=== PATIENT | female | born 1940 | race Caucasian/White ===

== ENCOUNTER 2017-03-21 00:54 | Inpatient (IN) | payer OTHER ==
[2017-03-21] MEDS ORDERED: ONDANSETRON 4 MG/2 ML VIAL ONE (01:55)
[2017-03-21] MEDS ORDERED: IOPAMIDOL (ISOVUE-300) 100 ML BTL ONE (01:56)
[2017-03-21] MEDS ORDERED: MAG HYDROX/AL HYDROX/SIMETH 30 ML UDCUP ONE (03:34)
[2017-03-21] MEDS ORDERED: LIDOCAINE 2% VISCOUS 15 ML UDCUP ONE (03:34)
--- NOTE | 2017-03-21 05:14 | EDPHY ---
H & P Time Seen by Provider: 03/21/17 05:06 HPI/ROS: Salma Brock [id number] HPI CHIEF COMPLAINT: Abdominal pain HISTORY OF PRESENT ILLNESS This patient very pleasant female, she presents emergency room with abdominal pain mid abdomen associated nausea since 10:00 a.m. this morning. No vomiting. States his constant gnawing pain mid abdomen. No chest pain or shortness of breath. No fever. She thinks she may have a bowel obstruction. Past Medical History: Hypertension Past Surgical History: Gastric bypass, hysterectomy, cholecystectomy Social History: Denies daily use drugs alcohol tobacco products Family History: Noncontributory ROS REVIEW OF SYSTEMS: A comprehensive 10 point review of systems is otherwise negative aside from elements mentioned in the history of present illness. Exam Constitutional triage nursing summary reviewed, vital signs reviewed, awake/ alert. Eyes normal conjunctivae and sclera, EOMI, PERRLA. HENT normal inspection, atraumatic, moist mucus membranes, no epistaxis, neck supple/ no meningismus, no raccoon eyes. Respiratory clear to auscultation bilaterally, normal breath sounds, no respiratory distress, no wheezing. Cardiovascular rate normal, regular rhythm, no murmur, no edema, distal pulses normal. Gastrointestinal soft tender palpation mid abdomen, no rebound, no guarding, normal bowel sounds, no distension, no pulsatile mass. Genitourinary no CVA tenderness. Musculoskeletal no midline vertebral tenderness, full range of motion, no calf swelling, no tenderness of extremities, no meningismus, good pulses, neurovascularly intact. Skin pink, warm, & dry, no rash, skin atraumatic. Neurologic awake, alert and oriented x 3, AAOx3, moves all 4 extremities equally, motor intact, sensory intact, CN II-XII intact, normal cerebellar, normal vision, normal speech. Psychiatric normal mood/affect. Heme/Lymph/Immune no lymphadenopathy. Differential Diagnosis: Includes but is not limited to in a particular order pancreatitis, bowel obstruction, ileus, cardiac disease Medical Decision Making: Plan for this patient IV establishment with IV fluid bolus Zofran for nausea control Dilaudid for pain control, IV fluids, CT abdomen pelvis with IV contrast, EKG and troponin. Re-evaluate. Re-evaluation: EKG interpretation by me on record in [facility] system. Impression time of EKG 1:41 a.m., this is AFib with multiple PVCs present. Otherwise I do not appreciate any acute ischemia. When I compare this to her old EKG she had a previous EKG dated 01/25/2015 sinus bradycardia 42. That was in sinus rhythm no AFib. I-STAT chemistry on this patient is a glucose of 100, BUN 25, creatinine 1.2, hematocrit 44, hemoglobin 15 sodium 141, potassium 3.4, chloride 103 CT scan of the abdomen pelvis with IV contrast The results of the study are negative for acute disease process specifically no evidence of bowel obstruction free fluid or free air no inflammatory process appreciated.. The study was read by Paola Soliz I viewed the images myself on the PACS system. Lactic acid 1.1. CBC shows a white count 7.6, hemoglobin 13.1, hematocrit 41.0, platelets 234 EKG interpretation by me on record in [facility] system. Impression this is a repeat EKG time of EKG 2:43 a.m., this is AFib, rate of 60s, multiple PVCs present. Troponin is negative less than 0.02. I Did re-evaluate the patient at this time 3:09 a.m. she is feeling better. She denies any nausea or chest pain. Noted to be in AFib. Will discuss atrial fibrillation with she reports to me that she does take sotalol. She is not on any anticoagulation. She reports she was on Xarelto however and made her muscles very weak. UA resulted. Unremarkable for infection. Very minimal whites 5, 1+ leukocyte Estrace negative nitrite. Most likely not the cause of her upper abdominal pain. 0334AM: I did re-evaluate the patient she is resting comfortably no acute distress. Abdomen is mildly tender epigastric and lower abdomen no guarding or peritoneal signs. Lipase noted be at 300. Urinalysis does not indicate anything significant. Will try GI cocktail to see if this improves her pain. 419AM: I did re-evaluate the patient. 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 There is no guarding or peritoneal signs. She still complaining of abdominal pain. GI cocktail did not improve her discomfort. I reviewed her blood work, EKG, CT scan lactic acid. She would like to stay in the hospital today for pain control IV fluids and nausea control. I will contact the hospitalist service Dr. Meadows for admission. 0423AM: Re-evaluation at this time. Patient continued to have abdominal pain. I spoke with the hospitalist service Dr. Meadows agrees to admit this patient for observation for abdominal pain. I do not have a great explanation for this patient's diffuse rather tender abdomen epigastric region. I do not feel like she has a surgical emergency or acute peritoneal signs. Source: Patient - Medical/Surgical History Hx Asthma: No Hx Chronic Respiratory Disease: No Hx Diabetes: No Hx Cardiac Disease: Yes Hx Renal Disease: No Hx Cirrhosis: No Hx Alcoholism: No Hx HIV/AIDS: No Hx Splenectomy or Spleen Trauma: No Other PMH: heart cath x3, knee replacements, gastric bypass. - Social History Smoking Status: Never smoked Allergies/Adverse Reactions: Sulfa (Sulfonamide Antibiotics) Allergy (Verified 07/10/13 14:40) Home Medications: Medication Instructions Recorded Biotin Sl 4,000 mcg SL DAILY 06/18/13 Cyanocobalamin/Cobamamide [B-12 2 each SL DAILY 06/18/13 5,000 Mcg Sublingual Tab] Irbesartan [Avapro 300 mg] 300 mg PO HS 06/18/13 Potassium Cl [Klor-Con 20 meq (RX)] 20 meq PO BID 06/18/13 Sotalol HCl [Sotalol] 80 mg PO BID 06/18/13 amLODIPine BESYLATE 03/13/16 Medical Decision Making - Data Points Laboratory Results: 03/21/17 01:45 POC Hgb 15.0 gm/dL gm/dL (12.6-16.3) POC Hct 44 % % (38-47) POC Sodium 141 mEq/L mEq/L (134-144) POC Potassium 3.4 mEq/L mEq/L (3.3-5.0) POC Chloride 103 mEq/L mEq/L (97-110) POC BUN 25 mg/dL H mg/dL (7-23) POC Creatinine 1.2 mg/dL H mg/dL (0.6-1.0) POC Glucose 100 mg/dL mg/dL (70-100) Point of Care Test Results: 03/21/17 01:45 POC Sodium 141 POC Potassium 3.4 POC Chloride 103 POC BUN 25 H POC Creatinine 1.2 H POC Glucose 100 Departure - Departure Disposition: [facility] Inpatient Acute Clinical Impression: Abdominal pain Qualifiers: Abdominal location: generalized Qualified Code(s): R10.84 - Generalized abdominal pain Condition: Fair
[2017-03-21] MEDS ORDERED: ONDANSETRON DISINTEGRATING 4 MG TAB PO PRN (05:19)
[2017-03-21] MEDS ORDERED: ONDANSETRON 4 MG/2 ML VIAL IVP PRN (05:19)
[2017-03-21] MEDS ORDERED: ACETAMINOPHEN 325 MG TAB PO PRN (05:19)
[2017-03-21] MEDS ORDERED: NS 1,000 ML IV SCH (05:30)
[2017-03-21] MEDS ORDERED: HYDROmorphONE/DILAUDID 1 MG/ML SYR IVP PRN (05:43)
[2017-03-21 05:44] LABS: APTT 35.7 SEC (23.0-38.0); INR 1.18 (0.83-1.16)
[2017-03-21 05:57] LABS: MAGNESIUM 1.5 mg/dL (1.6-2.3)
[2017-03-21 05:59] LABS: % IMMATURE GRANULYOCYTES 0.3 % (0.0-1.1); ABSOLUTE IMMATURE GRANULOCYTES 0.02 10^3/uL (0.00-0.10); ADD DIFF? NO; ADD MORPH? NO; ADD SCAN? NO; ATYPICAL LYMPHOCYTE FLAG 0 (0-99); FRAGMENT RBC FLAG 0 (0-99); HEMOGLOBIN 13.1 g/dL (12.6-16.3); LEFT SHIFT FLG 0 (0-99); LIPEMIA HEMOLYSIS FLAG 80 (0-99); MEAN CELL HEMOGLOBIN 25.6 pg (27.9-34.1); MEAN CELL VOLUME 80.1 fL (81.5-99.8); MEAN PLATELET VOLUME 10.1 fL (8.7-11.7); PLATELET CLUMPS FLAG 20 (0-99); PLATELET COUNT 234 10^3/uL (150-400); RED BLOOD CELL COUNT 5.12 10^6/uL (4.18-5.33); RED CELL DISTRIBUTION WIDTH 16.7 % (11.5-15.2)
[2017-03-21 06:09] LABS: ALANINE AMINOTRANSFERASE 30 IU/L (9-52); ALBUMIN 4.2 g/dL (3.5-5.0); ALKALINE PHOSPHATASE 78 IU/L (38-126); ASPARTATE AMINOTRANSFERASE 32 IU/L (14-46); BILIRUBIN,TOTAL 0.9 mg/dL (0.1-1.4); CALCIUM 10.3 mg/dL (8.5-10.4); CARBON DIOXIDE 24 mEq/l (22-31); CREATININE 1.1 mg/dL (0.6-1.0); GLOMERULAR FILTRATION RATE 49; GLUCOSE 99 mg/dL (70-100); TOTAL PROTEIN 7.2 g/dL (6.3-8.2); TROPONIN I < 0.012 ng/mL (0.000-0.034)
[2017-03-21 06:10] LABS: CHLORIDE 102 mEq/L (97-110); POTASSIUM 4.1 mEq/L (3.5-5.2); SODIUM 138 mEq/L (134-144)
[2017-03-21 06:12] LABS: ANION GAP 12 mEq/L (8-16)
[2017-03-21] MEDS: HEPARIN 5,000 UNIT/0.5 ML SYR SC SCH ×3 (06:12→20:49)
[2017-03-21 06:26] LABS: COLOR YELLOW; LEUKOCYTE ESTERASE,URINE 1+ (NEGATIVE); NITRITE,URINE NEGATIVE (NEGATIVE)
[2017-03-21 06:28] LABS: MUCUS TRACE /lpf (NONE-1+); RENAL EPITHELIAL CELLS OCCASIONAL /hpf (NONE SEEN)
--- NOTE | 2017-03-21 06:46 | CPEKG ---
Heart Rate: 65 RR Interval: 923 QRSD Interval: 110 QT Interval: 388 QTC Interval: 404 QRS [place]: -51 T Wave [place]: 206 EKG Severity - ABNORMAL ECG - EKG Impression: ATRIAL FIBRILLATION EKG Impression: VENTRICULAR TRIGEMINY EKG Impression: LAD, CONSIDER LEFT ANTERIOR FASCICULAR BLOCK EKG Impression: BORDERLINE R WAVE PROGRESSION, ANTERIOR LEADS EKG Impression: COMPARED WITH 03/21/2017 AT 1:41 A.M., NO SIGNIFICANT CHANGE Electronically Signed By: Mariana Alvarez 21-Mar-2017 08:48:40
--- NOTE | 2017-03-21 07:29 | GHP ---
[f rep st] HISTORY AND PHYSICAL DATE OF ADMISSION: 03/21/2017 CHIEF COMPLAINT: Epigastric abdominal pain. HISTORY OF PRESENT ILLNESS: Patient is a 76-year-old female with history of obesity, hyperlipidemia, pulmonary hypertension, PVCs, presenting with abdominal pain. She said it started this morning at 10:30 in the epigastric and lower mid abdomen. It felt achy and constant. She ate eggs for breakfast, which is her norm. She denies any fevers, chills, sweats. No nausea, vomiting. On Sunday, she had 3 episodes of liquid diarrhea and a small BM today. She denies any recent antibiotics or ill contacts. She reports loose stools chronically for the past 2 years every 1-3 days. She a saw her PCP 03/12 for similar symptoms except located on the left side by the time she saw her doctor, the symptoms had resolved. Denies chest pain, shortness of breath, or palpitations. She has been extremely fatigued over the last 5-6 months. It is noted on prior labs that she has had a suppressed TSH, but not symptomatic. Denies dysuria, urinary frequency, or urgency. REVIEW OF SYSTEMS: I completed a 10-point review of systems. Negative except as noted in HPI. PAST MEDICAL HISTORY: Hyperlipidemia, pulmonary hypertension, ventricular tachycardia, PVCs, hypertension, obesity. PAST SURGICAL HISTORY: Gastric bypass in 2003, cholecystectomy, cardiac catheterization, bilateral TKA, right shoulder surgery. SOCIAL HISTORY: Lives in [place] with her , 44 years. Denies alcohol, tobacco, or illicits. ALLERGIES: Sulfa. FAMILY HISTORY: Mother with emphysema. Father, she is unclear how he . HOME MEDICATIONS: CoQ10, Klor-Con 20 mEq, Norvasc 5 mg, sotalol 80. PHYSICAL EXAM: VITAL SIGNS: Temperature, she is afebrile. Blood pressure is 135/100. Heart rate 86. Respirations 14. 95% on room air. GENERAL: Well- appearing female, lying in bed, in no acute distress. HEENT: PERRLA. EOMI. Dry mucous membranes. CV: Irregular. No murmurs, gallops, or rubs. No lower extremity edema. LUNGS: Clear. No crackles. ABDOMEN: Obese, soft. Minimal pain at the umbilicus with palpation. No guarding or rebound. Positive bowel sounds throughout. : No suprapubic tenderness. MUSCULOSKELETAL: 5/5 upper and lower extremity strength. NEURO: 2 through 12 intact. PSYCH: Alert and oriented x3. LABS: UA: +1 leukocyte esterase, 3-5 WBCs. Troponin less than 0.012. Glucose 99. Total protein 7.2, albumin is 4.2. Sodium 138, potassium 3.4, chloride 103, BUN 25, creatinine 1.2, glucose 100. Magnesium and TSH are pending. Lipase 311. AST 32, ALT 30, alkaline phosphatase 78. Coags within normal. CT official read is pending, but there is no obstruction or abscess. EKG personally reviewed by me, ventricular trigeminy. ASSESSMENT AND PLAN: 1. Acute abdominal pain: differential includes gastroesophageal reflux disease , PUD, infection, or IBS. Labs are unremarkable as well as CT. Afebrile. A few whites in the urinalysis, but denies any symptoms. Wonder if she has IBS given history of intermittent diarrhea for the last 2 years. Will control pain here with IV Dilaudid given mild acute kidney injury and hydrate. Sotalol can cause loose stools. 2. Ventricular bigeminy: history of premature ventricular contractions on sotalol. 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 3. Mild acute kidney injury: Creatinine up to 1.2 from 0.9 baseline. Will hydrate. Denies any NSAIDs. 4. Hypertension: Resume Norvasc. 5. Diet: Advance as tolerated. 6. DVT prophylaxis: Subcu heparin given acute kidney injury. DISPOSITION: Patient warrants observation admission given acute abdominal pain requiring IV opioids and IV fluids. /[id number]/MODL MTDD
--- NOTE | 2017-03-21 08:37 | CPEKG ---
Heart Rate: 86 RR Interval: 698 QRSD Interval: 114 QT Interval: 340 QTC Interval: 407 QRS [place]: -50 T Wave [place]: 184 EKG Severity - ABNORMAL ECG - EKG Impression: ATRIAL FIBRILLATION EKG Impression: VENTRICULAR TRIGEMINY EKG Impression: NONSPECIFIC IVCD WITH LAD EKG Impression: BORDERLINE R WAVE PROGRESSION, ANTERIOR LEADS EKG Impression: COMPARED WITH 01/25/2015, ATRIAL FIBRILLATION AND VENTRICULAR ECTOPY NOW PRESENT Electronically Signed By: Mariana Alvarez 21-Mar-2017 08:49:14
[2017-03-21] MEDS ORDERED: MAGNESIUM SULF 2 GM/WATER 50 ML IV ONE (14:43)
--- NOTE | 2017-03-21 15:43 | HOSPPROG ---
Hospitalist Progress Note Assessment/Plan: 76 yo female with intermittent abd pain x 2 weeks. Worse with eating. Over the last 2 weeks, during her abd pain, she Feels distended for a few days, has minimal flatus, and then resolves spontaneously. This time her abd pain was worse and involved her epigastric area and wrapped around her back in a band like fashion. Lipase was slightly elevated. CT abd did not show any e/o obstruction, abd inflammation, or pathology. She was started on a diet overnight and provided IVF. She report that her abd is less distended this afternoon and she was able to pass flatus, which she hasnt in 2 days. #Abd pain, etiology unclear, but with a distended abdomen and inability to pass gas would argue for bowel obstruction. No e/o on imaging. No RUQ abd pain. Hx of cholecystectomy. -I will back off her diet today and provide bowel rest. 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 she had tachycardia on admission but now with Bradycardia. EKG c/w Afib and Ventricular trigeminy. she is chronically on Sotalol but she has not taken since yesterday -Hold Sotalol for now -Telemetry -replace Mg -May need a Cards consult. She sees Dr. Asher as an outpatient #MAGGIE, improving with IVF #HTN: monitor closely. Holding Sotalol per above. Dispo: keep inpatient DVT proph: Heparin TID Subjective: still with abd pain, worse with movement and after eating. Now with Bradycardia. NO CP or SOB Objective: Vital Signs Temp Pulse Resp BP Pulse Ox 36.3 C 60 13 141/88 H 94 03/21/17 08:39 03/21/17 08:39 03/21/17 08:39 03/21/17 08:39 03/21/17 08:39 03/20/17 03/21/17 03/22/17 05:59 05:59 05:59 Intake Total 1300 Output Total 400 Balance 1300 -400 PT 15.0 SEC (12.0-15.0) 03/21/17 01:55 INR 1.18 (0.83-1.16) H 03/21/17 01:55 - Physical Exam Constitutional: no apparent distress, appears nourished, not in pain Eyes: PERRL, EOMI Ears, Nose, Mouth, Throat: moist mucous membranes Cardiovascular: irregularly irregular, No JVD, No edema Respiratory: reduced air movement Gastrointestinal: tenderness (mid epigastric and LUE tenderness. ), distension ( slight), No ascites, No kmibrough's sign, No guarding, No rebound Skin: warm Neurologic: AAOx3 Psychiatric: interacting appropriately, not anxious, not encephalopathic ICD10 Worksheet Patient Problems: Problems Problem Status Onset Abdominal pain Acute Chest pain Acute
[2017-03-21] MEDS: amLODIPine BESYLATE 5 MG TAB PO SCH (15:49)
[2017-03-21] MEDS: PANTOPRAZOLE SODIUM 40 MG in NS 100 ML IV SCH (16:51)
[2017-03-21] MEDS: POTASSIUM CL 20 MEQ TAB PO SCH (20:55)
[2017-03-22] MEDS: HEPARIN 5,000 UNIT/0.5 ML SYR SC SCH (01:05)
[2017-03-22 04:52] LABS: % IMMATURE GRANULYOCYTES 0.2 % (0.0-1.1); ABSOLUTE IMMATURE GRANULOCYTES 0.01 10^3/uL (0.00-0.10); ADD DIFF? NO; ADD MORPH? NO; ADD SCAN? NO; ATYPICAL LYMPHOCYTE FLAG 10 (0-99); FRAGMENT RBC FLAG 0 (0-99); HEMATOCRIT 38.5 % (38.0-47.0); HEMOGLOBIN 12.3 g/dL (12.6-16.3); LEFT SHIFT FLG 0 (0-99); LIPEMIA HEMOLYSIS FLAG 80 (0-99); MEAN CELL HEMOGLOBIN 25.7 pg (27.9-34.1); MEAN CELL HEMOGLOBIN CONCENTR. 31.9 g/dL (32.4-36.7); MEAN CELL VOLUME 80.4 fL (81.5-99.8); MEAN PLATELET VOLUME 10.2 fL (8.7-11.7); PLATELET CLUMPS FLAG 0 (0-99); PLATELET COUNT 207 10^3/uL (150-400); RED BLOOD CELL COUNT 4.79 10^6/uL (4.18-5.33); RED CELL DISTRIBUTION WIDTH 16.6 % (11.5-15.2)
[2017-03-22 05:12] LABS: ANION GAP 8 mEq/L (8-16); CARBON DIOXIDE 25 mEq/l (22-31); CHLORIDE 103 mEq/L (97-110); GLOMERULAR FILTRATION RATE 54; GLUCOSE 86 mg/dL (70-100); MAGNESIUM 1.7 mg/dL (1.6-2.3); SODIUM 136 mEq/L (134-144)
[2017-03-22] MEDS ORDERED: COBAMAMIDE SL SCH (09:00)
[2017-03-22] MEDS ORDERED: CYANOCOBALAMIN SL SCH (09:00)
[2017-03-22] MEDS: amLODIPine BESYLATE 5 MG TAB PO SCH (09:24)
[2017-03-22] MEDS: PANTOPRAZOLE SODIUM 40 MG in NS 100 ML IV SCH (09:28)
[2017-03-22 11:56] VITALS: BP 161/120; PULSE 93; RESP 15; TEMP 98; O2SAT 94
[2017-03-22] MEDS ORDERED: ENOXAPARIN 40 MG/0.4 ML SYR SC SCH (12:00)
[2017-03-22] MEDS ORDERED: SOTALOL HCL 80 MG TAB PO SCH (12:00)
[2017-03-22] MEDS: POTASSIUM CL 20 MEQ TAB PO SCH (12:15)
--- NOTE | 2017-03-22 12:40 | HOSPPROG ---
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 tele: af, pvc's and 4 beats nsvt (interp by me) Objective: Vital Signs Temp Pulse Resp BP Pulse Ox 36.7 C 93 15 161/120 H 94 03/22/17 11:55 03/22/17 11:55 03/22/17 11:55 03/22/17 11:55 03/22/17 11:55 Laboratory Results 03/22/17 03:37 03/22/17 03:37 03/21/17 03/22/17 03/23/17 05:59 05:59 05:59 Intake Total 2000 Output Total 1200 Balance 800 PT 15.0 SEC (12.0-15.0) 03/21/17 01:55 INR 1.18 (0.83-1.16) H 03/21/17 01:55 - Physical Exam Constitutional: no apparent distress, appears nourished Eyes: PERRL, anicteric sclera Ears, Nose, Mouth, Throat: moist mucous membranes, hearing normal Cardiovascular: irregularly irregular, No systolic murmur Respiratory: no respiratory distress, no rales or rhonchi Gastrointestinal: normoactive bowel sounds, soft, non-tender abdomen Genitourinary: no bladder fullness, No reese in urethra Skin: warm, normal color Musculoskeletal: full muscle strength, no muscle tenderness Neurologic: AAOx3 Psychiatric: interacting appropriately ICD10 Worksheet Patient Problems: Problems Problem Status Onset Abdominal pain Acute Chest pain Acute
--- NOTE | 2017-03-22 14:46 | GDS ---
[f rep st] DISCHARGE SUMMARY DISCHARGE DIAGNOSES: 1. Abdominal pain, thought to be functional. 2. New atrial fibrillation. 3. History of premature ventricular complexes. 4. Hypertension. Please see admission History and Physical by Dr. Jaycee Meadows. The patient presented with abdomina l pain. She was afebrile. She was not tachycardic. She had a modestly elevated lipase with normal LFTs. She had an unremarkable CAT scan. She felt better with conservative management. [place] to be f unctionally either an IBS-type syndrome or possible food intolerance. She was advised to start Metam ucil. She was eating well. She was noted to be in atrial fibrillation. This is a new diagnosis for her. Her digital program manager is Dr. Asher. He is out of town. I reviewed it with Alison Jacosben. We agreed t o start Eliquis and have outpatient followup with Dr. Asher. /[id number]/MODL
[2017-03-23] MEDS ORDERED: CHLORTHALIDONE 25 MG TAB PO SCH (09:00)
== END 2017-03-22 15:50 | disposition home or self-care (01) | DRG 392 ==
LOC: F2W 05:52 → OBSVTOIN 15:19
PROVIDERS: ADMIT Internal Medicine; ATTEND Internal Medicine
DX: K58.9 Irritable bowel syndrome, unspecified (principal); K90.49 Malabsorption due to intolerance, not elsewhere classified; I48.91 Unspecified atrial fibrillation; I49.3 Ventricular premature depolarization; I10 Essential (primary) hypertension; E78.5 Hyperlipidemia, unspecified; I27.2 Other secondary pulmonary hypertension; Z98.84 Bariatric surgery status
CPT/HCPCS: 82947-QW; J1650; J2405; Q9967

== ENCOUNTER → 2017-07-19 | Outpatient (CLI) | payer OTHER | LOC: CIMAGING 15:45 | PROVIDERS: ATTEND Family Medicine | DX: S93.402A Sprain of unspecified ligament of left ankle, initial encounter (principal); I51.7 Cardiomegaly; M47.894 Other spondylosis, thoracic region; Z96.611 Presence of right artificial shoulder joint | CPT/HCPCS: 71046-PO; 73610-PO ==

== ENCOUNTER → 2017-08-27 | Outpatient (CLI) | payer OTHER ==
[~2017-08-27] MED LIST: IOPAMIDOL (ISOVUE 370) 100 ML BTL IV ONE
== END ==
LOC: FIMAGING 12:33
PROVIDERS: ATTEND Internal Medicine Cardiovascular Disease
DX: I27.20 Pulmonary hypertension, unspecified (principal); I28.8 Other diseases of pulmonary vessels; N28.1 Cyst of kidney, acquired; M51.34 Other intervertebral disc degeneration, thoracic region; M46.94 Unspecified inflammatory spondylopathy, thoracic region
CPT/HCPCS: 71275; Q9967

== ENCOUNTER → 2017-09-27 | Outpatient (CLI) | payer OTHER | LOC: CIMAGING 12:21 | PROVIDERS: ATTEND Family Medicine | DX: M25.572 Pain in left ankle and joints of left foot (principal); M85.2 Hyperostosis of skull | CPT/HCPCS: 70250-PO; 73610-PO ==

== ENCOUNTER 2018-01-02 13:42 | Emergency (ER) | payer OTHER ==
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
[2018-01-02] MEDS ORDERED: LIDOCAINE 4%/MENTHOL 1% PATCH TD ONE (15:16)
[2018-01-02] MEDS ORDERED: ACETAMINOPHEN 500 MG TAB PO ONE (15:16)
[2018-01-02 15:37] VITALS: BP 145/75
[2018-01-02] MEDS ORDERED: PATCH REMOVAL 1 EA PATCH TD SCH (21:00)
== END 2018-01-02 15:35 | disposition home or self-care (01) ==
LOC: EDUNIT#
DX: S80.11XA Contusion of right lower leg, initial encounter (principal); V43.52XA Car driver injured in collision with other type car in traffic accident, initial encounter; Y92.410 Unspecified street and highway as the place of occurrence of the external cause; Y99.8 Other external cause status; Y93.89 Activity, other specified

== ENCOUNTER → 2018-01-14 | Outpatient (CLI) | payer OTHER | LOC: CIMAGING 12:32 | PROVIDERS: ATTEND Family Medicine | DX: I82.811 Embolism and thrombosis of superficial veins of right lower extremity (principal) | CPT/HCPCS: 93970-PO ==

== ENCOUNTER 2018-01-22 09:40 | Day surgery (SDC) | payer OTHER ==
[2018-01-22] MEDS ORDERED: BENZOCAINE UNIT DOSE SPRAY HURRICAINE MM ONE (09:42)
[2018-01-22] MEDS ORDERED: NS 500 ML IV ONE (09:42)
[2018-01-22] MEDS ORDERED: MIDAZOLAM 2 MG/2 ML VIAL IVP ONE (09:42)
[2018-01-22] MEDS ORDERED: ATROPINE SULFATE 1 MG/10 ML SYR IVP ONE (09:42)
[2018-01-22] MEDS ORDERED: fentaNYL 100 MCG/2 ML INJ IVP ONE (09:42)
[2018-01-22 10:36] LABS: INR 1.91 (0.83-1.16)
[2018-01-22] MEDS ORDERED: ETOMIDATE 40 MG/20 ML INJ ONE (11:27)
--- NOTE | 2018-01-22 11:30 | PDPROPOC ---
Sedation Plan of Care Sedation Plan of Care: vital signs stable, mental status noted, patient educated of risks, benefits, alternatives, patient can tolerate sedation ASA Classification: ASA 3 Planned drugs: fentanyl, midazolam Mallampati Score: Class 4 Mallampati Reference Image: Patient passed 3-3-2 rule?: No
--- NOTE | 2018-01-22 11:31 | PDHPUP ---
History & Physical Update H&P update statement: This history and physical update is based on an assessment of the patient which was completed after admission or registration (within 24 hours), but prior to the surgery/procedure. H&P update: H&P reviewed & patient examined, no change in patient's condition since H&P completed
--- NOTE | 2018-01-22 11:37 | CPEKG ---
Heart Rate: 78 RR Interval: 769 QRSD Interval: 112 QT Interval: 424 QTC Interval: 484 QRS [place]: -39 T Wave [place]: -40 EKG Severity - ABNORMAL ECG - EKG Impression: ATRIAL FIBRILLATION EKG Impression: MULTIFORM VENTRICULAR PREMATURE COMPLEXES EKG Impression: NONSPECIFIC IVCD WITH LAD EKG Impression: BORDERLINE R WAVE PROGRESSION, ANTERIOR LEADS Electronically Signed By: Reid Saleh 24-Jan-2018 21:12:13
--- NOTE | 2018-01-22 11:43 | PDTEE1 ---
NICOLA Cardioversion Procedure Procedure: electrical cardioversion, transesophageal echo Indications: atrial fibrillation Consent: signed and in chart Anticoagulation: xarelto Procedural Details: Pads were placed in anterior-posterior position. NICOLA probe was advanced and standard images obtained. There is no evidence of left atrial or left atrial appendage thrombus. We proceeded with the cardioversion. Synchronized cardioversion attempt #1: 360J Results: normal sinus rhythm Conclusions: successful NICOLA cardioversion Conclusion Comment: The patient returned to normal sinus rhythm with frequent PVCs. Patient Problems: Problems Problem Status Onset Abdominal pain Acute Chest pain Acute Contusion Acute
--- NOTE | 2018-01-22 12:10 | CPEKG ---
Heart Rate: 53 RR Interval: 1132 P-R Interval: 228 QRSD Interval: 114 QT Interval: 464 QTC Interval: 436 P [place]: 20 QRS [place]: -41 EKG Severity - ABNORMAL ECG - EKG Impression: SINUS RHYTHM EKG Impression: FIRST DEGREE AV BLOCK EKG Impression: NONSPECIFIC IVCD WITH LAD Electronically Signed By: Reid Saleh 24-Jan-2018 21:11:54
[2018-01-22] MEDS ORDERED: ETOMIDATE 40 MG/20 ML INJ IV ONE (12:30)
== END 2018-01-22 17:19 | disposition home or self-care (01) ==
LOC: FCATH 09:40
PROVIDERS: ATTEND Internal Medicine Cardiovascular Disease
PROC: 5A2204Z Restoration of Cardiac Rhythm, Single (ICD-10-PCS; principal; 2018-01-22)
PROC: B245ZZ4 Ultrasonography of Left Heart, Transesophageal (ICD-10-PCS; principal; 2018-01-22)
DX: I48.91 Unspecified atrial fibrillation (principal); I27.20 Pulmonary hypertension, unspecified; I49.3 Ventricular premature depolarization; I47.2 Ventricular tachycardia; E78.5 Hyperlipidemia, unspecified; I10 Essential (primary) hypertension; K58.9 Irritable bowel syndrome, unspecified; I34.0 Nonrheumatic mitral (valve) insufficiency; E66.9 Obesity, unspecified; Z68.32 Body mass index [BMI] 32.0-32.9, adult; Z79.01 Long term (current) use of anticoagulants; Z98.84 Bariatric surgery status; Z88.2 Allergy status to sulfonamides
CPT/HCPCS: J0461; J2250; J3010

== ENCOUNTER → 2018-03-04 | Outpatient (CLI) | payer OTHER | LOC: SBRMNEURO 23:00 | PROVIDERS: ATTEND Internal Medicine Pulmonary Disease | DX: G47.33 Obstructive sleep apnea (adult) (pediatric) (principal); G47.61 Periodic limb movement disorder ==

== ENCOUNTER → 2018-08-21 | Outpatient (CLI) | payer OTHER | LOC: CIMAGING 11:53 | PROVIDERS: ATTEND Family Medicine | DX: M25.531 Pain in right wrist (principal); M25.631 Stiffness of right wrist, not elsewhere classified | CPT/HCPCS: 73110-PO ==

== ENCOUNTER 2018-11-29 13:55 | Inpatient (IN) | payer OTHER ==
--- NOTE | 2018-11-29 14:25 | EDPHY ---
HPI/HX/ROS/PE/MDM Narrative: CHIEF COMPLAINT: Shortness of breath, ankle swelling HPI: This patient is an anticoagulated (Xarelto) 78-year-old female with history of atrial fibrillation. She complains of five weeks of worsening fatigue and shortness of breath, particularly at night. She uses a CPAP at home but has felt as though she is "suffocating" while wearing this the past two nights. She endorses increased work of breathing with mild exertion. This has been particularly severe in the last three days. She endorses some mild chest discomfort with coughing. She additionally has noted ankle swelling beginning this morning. Today, she tried to make an appointment with her cruise counselor, Dr. Asher, but staff recommended she present to the ED for further evaluation. She denies having missed any doses of her anticoagulants or any recent medication changes. The patient is concerned for possible heart issues or pneumonia. She notes she has had a negative cardiac catheterization two years ago. She denies nausea, vomiting, diarrhea, headache, or other associated symptoms. REVIEW OF SYSTEMS: A comprehensive 10 system review of systems is otherwise negative aside from elements mentioned in the history of present illness and medical decision making. PMH: Atrial fibrillation. Pulmonary hypertension. SOCIAL HISTORY: . Retired. Lives in [place]. at bedside. PHYSICAL EXAM: General:Patient is alert, in no acute distress. ENT:Eyes are normal to inspection. ENT inspection normal. Neck: Normal inspection. Full range of motion. Respiratory:No respiratory distress. Breath sounds normal bilaterally. Cardiovascular: Irregularly irregular tachycardia. Strong peripheral pulses. Normal cap refill. Abdomen:The abdomen is nontender to palpation. There are no peritoneal signs. There are normal bowel sounds. Back: Normal to inspection. No tenderness to palpation. Skin: Normal color. No rash. Warm and dry. Extremities: 1-2+ pedal edema bilaterally. Full range of motion. Neuro: Oriented x3. Normal motor function. Normal sensory function. ED Course: 78-year-old female with history of atrial fibrillation presents with five weeks of worsening fatigue and shortness of breath, particularly over the last three days. The patient is currently in atrial fibrillation, somewhat tachycardic. She does have 1-2+ pedal edema bilaterally. Plan for EKG, chest x-ray, labs including CBC, chemistries, BNP, POC troponin. EKG was ordered and interpreted by myself. Please see [facility] system for official reading. Reviewed chest x-ray. See radiologist report for details. Labs largely unremarkable. BNP slightly elevated. 16:14 OSIRIS Mccrary for cardiology, has evaluated the patient. Cardiology will admit for further workup. - Data Points Imaging Results: Imaging Impressions Chest X-Ray 11/29/18 14:22 Impression: 1. Increased interstitial prominence in the lung bases, which could be related to mild fluid overload, atelectasis, or less likely interstitial lung disease, without definite evidence of pneumonia. 2. Cardiomegaly without nallely failure. Imaging: I viewed and interpreted images myself Laboratory Results: Laboratory Results 11/29/18 14:19 11/29/18 14:19 11/29/18 11/29/18 11/29/18 14:24 14:19 14:19 WBC RBC Hgb Hct MCV MCH MCHC RDW Plt Count MPV Neut % (Auto) Lymph % (Auto) [place] % (Auto) Eos % (Auto) Baso % (Auto) Nucleat RBC Rel Count Absolute Neuts (auto) Absolute Lymphs (auto) Absolute Monos (auto) Absolute Eos (auto) Absolute Basos (auto) Absolute Nucleated RBC Immature Gran % Immature Gran # Platelet Estimate Hypochromasia Elliptocytes Acanthocytes (Spur) Schistocytes Sodium 139 mEq/L mEq/L (135-145) Potassium 3.8 mEq/L mEq/L (3.5-5.2) Chloride 105 mEq/L mEq/L (97-110) Carbon Dioxide 24 mEq/l mEq/l (22-31) Anion Gap 10 mEq/L mEq/L (6-14) BUN 17 mg/dL mg/dL (7-23) Creatinine 0.9 mg/dL mg/dL (0.6-1.0) Estimated GFR > 60 Glucose 92 mg/dL mg/dL (70-100) Calcium 9.7 mg/dL mg/dL (8.5-10.4) POC Troponin I 0.03 ng/mL ng/mL (0.00-0.08) NT-Pro-B Natriuret Pep 528 pg/mL H pg/mL (0-450) 11/29/18 14:19 WBC 7.69 10^3/uL 10^3/uL (3.80-9.50) RBC 5.11 10^6/uL 10^6/uL (4.18-5.33) Hgb 13.1 g/dL g/dL (12.6-16.3) Hct 41.9 % % (38.0-47.0) MCV 82.0 fL fL (81.5-99.8) MCH 25.6 pg L pg (27.9-34.1) MCHC 31.3 g/dL L g/dL (32.4-36.7) RDW 28.3 % H % (11.5-15.2) Plt Count 222 10^3/uL 10^3/uL (150-400) MPV 10.1 fL fL (8.7-11.7) Neut % (Auto) 69.6 % % (39.3-74.2) Lymph % (Auto) 16.9 % % (15.0-45.0) [place] % (Auto) 11.2 % % (4.5-13.0) Eos % (Auto) 1.3 % % (0.6-7.6) Baso % (Auto) 0.7 % % (0.3-1.7) Nucleat RBC Rel Count 0.0 % % (0.0-0.2) Absolute Neuts (auto) 5.36 10^3/uL 10^3/uL (1.70-6.50) Absolute Lymphs (auto) 1.30 10^3/uL 10^3/uL (1.00-3.00) Absolute Monos (auto) 0.86 10^3/uL H 10^3/uL (0.30-0.80) Absolute Eos (auto) 0.10 10^3/uL 10^3/uL (0.03-0.40) Absolute Basos (auto) 0.05 10^3/uL 10^3/uL (0.02-0.10) Absolute Nucleated RBC 0.00 10^3/uL 10^3/uL (0-0.01) Immature Gran % 0.3 % % (0.0-1.1) Immature Gran # 0.02 10^3/uL 10^3/uL (0.00-0.10) Platelet Estimate ADEQUATE (ADEQ) Hypochromasia 1+ H Elliptocytes 1+ H Acanthocytes (Spur) 1+ H Schistocytes 1+ H Sodium Potassium Chloride Carbon Dioxide Anion Gap BUN Creatinine Estimated GFR Glucose Calcium POC Troponin I NT-Pro-B Natriuret Pep Medications Given: Diltiazem HCl (Cardizem Er Q24hr) 120 mg PO DAILY INGRID Stop: 05/28/19 16:44 Last Admin: 11/29/18 17:36 Dose: 120 mg Discontinued Medications Furosemide (Lasix Injection) 20 mg IVP EDNOW ONE Stop: 11/29/18 16:44 Last Admin: 11/29/18 17:13 Dose: 20 mg Point of Care Test Results: Chemistry 11/29/18 14:24 POC Troponin I 0.03 ng/mL ng/mL (0.00-0.08) General Time Seen by Provider: 11/29/18 14:06 Initial Vital Signs: Initial Vital Signs Temperature (C) 36.4 C 11/29/18 14:02 Heart Rate 114 H 11/29/18 14:02 Respiratory Rate 18 11/29/18 14:02 Blood Pressure 143/87 H 11/29/18 14:02 O2 Sat (%) 98 11/29/18 14:02 O2 Delivery Mode Room Air Allergies/Adverse Reactions: apixaban [From Eliquis] Allergy (Intermediate, Verified 11/29/18 14:00) Other-Enter Comments amoxicillin Allergy (Verified 11/29/18 14:00) azithromycin [From Zithromax] Allergy (Verified 11/29/18 14:00) clavulanic acid [From Augmentin] Allergy (Verified 11/29/18 14:00) diclofenac Allergy (Verified 11/29/18 14:07) hydromorphone [From Dilaudid] Allergy (Verified 11/29/18 14:00) ketorolac [From Toradol] Allergy (Verified 11/29/18 14:00) promethazine [From Phenergan] Allergy (Verified 11/29/18 14:00) Sulfa (Sulfonamide Antibiotics) Allergy (Verified 11/29/18 14:00) Swelling/neck,face,throat Home Medications: Medication Instructions Recorded Herbals/Supplements -Info Only 1 ea PO DAILY 06/18/13 Potassium Cl [Klor-Con 20 meq (*)] 20 meq PO BID 06/18/13 amLODIPine BESYLATE [Norvasc 5 mg 5 mg PO DAILY 08/29/16 (*)] Chlorthalidone [Chlorthalidone 25 25 mg PO DAILY 03/21/17 mg (*)] Xarelto 10mg (*) 20 mg PO DAILY 01/21/18 Departure - Departure Disposition: [facility] In[facility] Acute Clinical Impression: Dyspnea Qualifiers: Dyspnea type: shortness of breath Qualified Code(s): R06.02 - Shortness of breath Condition: Fair Report Scribed for: Jeremy Rogers Report Scribed by: Kathy Parekh Date of Report: 11/29/18 Time of Report: 14:55 Physician Review and Approval Statement: Portions of this note were transcribed by an ED scribe. I personally performed the history, physical exam, and medical decision making; and confirm the accuracy of the information in the transcribed note.
[2018-11-29 14:29] LABS: PLATELET COUNT 222 10^3/uL (150-400)
[2018-11-29] MEDS ORDERED: ACETAMINOPHEN 325 MG TAB PO PRN (16:34)
[2018-11-29] MEDS ORDERED: ONDANSETRON DISINTEGRATING 4 MG TAB PO PRN (16:34)
[2018-11-29] MEDS ORDERED: ONDANSETRON 4 MG/2 ML VIAL IVP PRN (16:34)
[2018-11-29] MEDS ORDERED: FUROSEMIDE 20 MG/2 ML VIAL IVP ONE (16:43)
[2018-11-29] MEDS ORDERED: FUROSEMIDE 20 MG/2 ML VIAL ONE (17:09)
--- NOTE | 2018-11-29 17:25 | GCON ---
[f rep st] CONSULTATION CARDIAC CONSULTATION DATE OF CONSULTATION: 11/29/2018 CHIEF COMPLAINT: Shortness of breath. HISTORY OF PRESENT ILLNESS: The patient is a 78-year-old female with a history of permanent atrial fibrillation on Xarelto, PVCs, and iron deficiency anemia, who presented to the hospital with shortness of breath and lower extremity edema. Her symptoms began 4 weeks ago with exertional shortness of breath and palpitations. She also became fatigued with this. Her symptoms have progressed , and she is now having shortness of breath at rest. She has also noted PND over the last few days. Her weight has been stable, but she has had lower extremity edema for the last 2-3 days. Her troponin is negative on admission, and BNP is elevated at 528. A chest x-ray shows possible fluid overload. She has been monitored on telemetry and has remained in atrial fibrillation with PVCs and rates of 110-120 beats per minute. PAST MEDICAL HISTORY: Hypertension, hyperlipidemia, PVCs, permanent atrial fibrillation, obstructive sleep apnea on CPAP, pulmonary hypertension, iron deficiency anemia. FAMILY HISTORY: Noncontributory. SOCIAL HISTORY: She is currently accompanied by her . She denies any ongoing tobacco use. REVIEW OF SYSTEMS: A 10-point review of systems is negative except for what is stated in the H and P. HOME MEDICATIONS: Chlorthalidone 25 mg daily, Norvasc 5 mg daily, Xarelto 20 mg daily, Klor-Con 20 mEq daily, biotin 800 mcg daily, Bifera, and vitamin B12. ALLERGIES: Eliquis, amoxicillin, azithromycin, clavulanic acid and diclofenac. PHYSICAL EXAMINATION: GENERAL: Patient appears in no acute distress. VITALS: Blood pressure 117/71, heart rate 112, oxygen saturation 94% on room air. Afebrile. NECK: No carotid bruits or JVD present. There is no evidence of thyromegaly. LUNGS: Clear to auscultation. No wheezes, rhonchi, or crackles auscultated. CARDIAC: Irregular rate and rhythm, without any significant murmurs, rubs, or gallops appreciated. ABDOMEN: Soft, nontender. EXTREMITIES : Mild edema bilaterally with 2+ pulses. NEUROLOGIC: Nonfocal. PSYCHIATRIC: Mood and affect appropriate. SKIN: No obvious rashes or ecchymosis identified. LABORATORY DATA: Troponin negative x1, BNP 528. BMP within normal limits. WBCs 5.69, hemoglobin 13.1, hematocrit 41.9, platelets 222. DIAGNOSTIC STUDIES: Chest x-ray suggests possible fluid overload with cardiomegaly. EKG shows atrial fibrillation with rapid ventricular rates at 115 beats per minute. She has PVCs and 1 ventricular couplet. There are nonspecific ST-T wave changes in the lateral leads. ASSESSMENT: The patient is a 78-year-old female with a history of permanent atrial fibrillation, premature ventricular contractions, and iron deficiency anemia, who is admitted with shortness of breath and lower extremity edema. PLAN: The patient has a history of permanent atrial fibrillation with well- controlled rates. On admission to the hospital today, her rates have been elevated, running in the 110s to 120s. She is in heart failure of unknown etiology. Her heart failure may be related to poorly controlled rates. She will be admitted to the hospital and diuresed with 20 mg of IV Lasix Daily. Her Norvasc is on hold, and she will begin Cardizem CD 120 mg daily for rate control. She has a CHADS-VASc score of 4, and has had multiple falls in the past. She is planning to have an EGD on Sunday to assess her iron deficiency anemia, and therefore, Xarelto is on hold. She does not appear anemic today with a stable H and H. She will be monitored on telemetry to assess rate control. /[id number]/MODL MTDD
[2018-11-29] MEDS: DILTIAZEM CD 120 MG CAP PO SCH (17:36)
[2018-11-29] MEDS: POTASSIUM CL 20 MEQ TAB PO SCH (20:41)
[2018-11-30 04:38] LABS: PLATELET COUNT 216 10^3/uL (150-400)
[2018-11-30] MEDS ORDERED: PROTOCOL POTASSIUM 1 DOSE MISC PRN (08:11)
[2018-11-30] MEDS ORDERED: PROTOCOL MAGNESIUM 1 DOSE IV PRN (08:11)
[2018-11-30] MEDS: ENOXAPARIN 40 MG/0.4 ML SYR SC SCH (08:14)
[2018-11-30] MEDS: DILTIAZEM CD 120 MG CAP PO SCH (08:14)
[2018-11-30] MEDS: POTASSIUM CL 20 MEQ TAB PO SCH ×2 (08:14→20:25)
[2018-11-30] MEDS ORDERED: POTASSIUM CL 10 MEQ TAB PO ONE ×2 (08:19→20:16)
--- NOTE | 2018-11-30 08:39 | ASMTCMCOM ---
CM Note CM Note Notes: Chart reviewed for discharge planning purposes. 78 year old female admitted via ED with c/o worsening fatigue and increasing SOB . Normally lives independent with her . CM to follow for needs. Plan: TBD Date Signed: 11/30/2018 08:38 AM Electronically Signed By:Dinora Sam RN
[2018-11-30] MEDS ORDERED: MAGNESIUM SULF 2 GM/WATER 50 ML IV ONE (08:59)
--- NOTE | 2018-11-30 10:13 | PDCARPN ---
Cardiology Progress Note Chief Complaint: SOB Assessment/Plan: Assessment: The patient is 78 y/o M with a history of HTN, HLP, PVC, permanent a.fib, and MARISSA on CPAP admitted with a.scotty with RVR and DCHF. She developed AGUIAR 4 weeks ago which progressed to PND the last few days. She is responding well to Lasix. Plan: 1. Permanent a.fib- poorly controlled rates. Diltiazem added yesterday with minimal improvement in rates. Switch to Metoprolol this evening. Xarelto is on hold for possible EGD on Sunday. CHADS VASc of 4 2. DCHF- Echo pending. Will add Lasix IV BID. 3. electrolyte abnormalities- Begin Electrolyte protocol 4. Iron deficiency anemia- plan for EGD tomorrow. H/H is stable and normal at this time. 5. Abnormal EKG- lateral Twave inversion. She is angina free. Consider out patient nuc. 6. h/o PVC's and NSVT- consider switch to Metoprolol. Cath in 2012 showed minimal CAD PHTN- with some response to Adenosine challenge. Resume Norvasc at 2.5mg daily 11/30/18 10:17 Subjective: Her SOB has significantly improved. She has no further PND. Objective: Vital Signs (8 Hrs) Temp Pulse Resp BP Pulse Ox 11/30/18 08:00 37.1 C 105 H 20 116/98 H 95 11/30/18 04:00 36.9 C 110 H 17 123/88 H 95 Intake/Output (24 Hrs) 11/29/18 11/30/18 12/01/18 05:59 05:59 05:59 Intake Total 300 Output Total 2000 Balance -1700 Intake: Oral (ml) 300 Output: Urine (ml) 2000 Toilet 2000 Other: Weight 85.049 kg Number of Voids 1 Toilet 1 Result Diagrams: 11/30/18 03:14 11/30/18 03:14 Cardiac Labs: Cardiac Lab Results (72 Hrs) 11/30/18 03:14 Troponin I < 0.012 Telemetry: jose with frequent ventricular ectopy including NSVT - Physical Exam Constitutional: no apparent distress Cardiovascular: no rubs, no gallops, irregularly irregular Peripheral Pulses: 2+: dorsalis-pedis (R), dorsalis-pedis (L) Respiratory: clear to auscultate bilat, no crackles, no wheezes Skin: other (minor edema bilaterally) ICD10 Worksheet Patient Problems: Problems Problem Status Onset Dyspnea Acute Abdominal pain Acute Chest pain Acute Contusion Acute
[2018-11-30] MEDS: FUROSEMIDE 40 MG/4 ML VIAL IVP SCH ×2 (11:05→16:38)
--- NOTE | 2018-11-30 12:04 | ECHO ---
[email or web address] [address] Main: [phone] Echocardiography Examination Transthoracic Name: SHAGUFTA CAM MR#: Study Date: 11/30/2018 Study Time: 07:12 AM Date of : 1940 Age: 78 year(s) Height: 162.6 cm (64 in.) Weight: 85.28 kg (188 lb.) BSA: 1.91 m2 Gender: Female Examination: Echo Contrast: Image Quality: Adequate Rhythm: Heart Rate: BP: 123 mmHg/88 mmHg Indication: Atrial fibrillation/SOB Procedure Staff Referring Physician: Lead Front Desk Agent: Carmelita Foote RDCS Reading Physician: Emigdio Contreras MD Requesting Provider: Ordering Physician: Alison Jacobsen Indication: Atrial fibrillation/SOB Measurements Chambers AV/MV Label Value Normal Value Label Value Normal Value LVOTd 1.9 cm (1.8cm - 2cm) AV PGmean 4 mmHg LVOT VTI 10.3 cm (18cm - 22cm) AV Vmax 1.25 m/s LVDd, 2D 6.4 cm (3.9cm - 5.3cm) EDEL (VTI) 1.6 cm2 LVDs, 2D 4.9 cm (2.1cm - 4cm) MV VTI 27.4 cm IVSd, 2D 0.8 cm (0.6cm - 1.1cm) MVA D (continuity eq.) 1.1 cm2 LVPWd, 2D 0.8 cm MV PGmax 12 mmHg LVEF, BP 41 % (55% - 70%) MV PGmean 4 mmHg LVEF, 2D 45 % (54% - 74%) MV Viky 4.8 cm LVOT PGmean 1 mmHg MR Vena Contracta 0.2 cm LVOT Vmean 0.4 m/s MR Reg. Volume 38 ml LA Volume, BP 225 ml (22ml - 52ml) MR Reg. Fraction 8 % LADs, 2D 6.3 cm (2.7cm - 3.8cm) MR Vmax 4.94 m/s LAESV index, BP 117.8 MR VTI 142 cm ml/m2 MR (ERO) 0.27 cm2 Additional Vessels MR PISA Radius 0.9 cm Label Value Normal Value MR PISA Alias V. 26.4 cm/s AoAsc 3.6 cm TV/PV AoRoot, MM 2.5 cm (2.2cm - 3.7cm) Label Value Normal Value RA Pressure 5 mmHg Patient: SHAGUFTA CAM MRN: Study Date: 11/30/2018 Page 1 of 3 07:12 AM RVSP 44 mmHg TR Pmax 39 mmHg TR Vmax 3.14 m/s Conclusions Left Ventricle: The ejection fraction, measured by Simpsons method, is 41 %. Unable to assess Diastolic Dysfunction due to atrial fibrillation/a flutter. Right Ventricle: Right ventricular systolic function is normal. Left Atrium: The left atrium is severely dilated. Mitral Valve: Severe mitral regurgitation. Tricuspid Valve: Mild tricuspid regurgitation. Right Ventricular systolic pressure is measured at 44 mmHg. Overall Conclusions: Compared to echo of 01/2018 NICOLA, today's echo showed a change in the lvef has dropped from50% to now40% and MR now appears to severe from moderate. Findings Left Ventricle: The ejection fraction, measured by Simpsons method, is 41 %. EF range is estimated at 40 % - 45 %. Left ventricle wall thickness is normal. Unable to assess Diastolic Dysfunction due to atrial fibrillation/a flutter. IVS: The septum is intact. Right Ventricle: Normal size right ventricle. Right ventricular systolic function is normal. Left Atrium: The left atrium is severely dilated. IAS: Normal appearing atrial septum. Right Atrium: The right atrium is normal in size. Mitral Valve: Mitral valve appears structurally normal. Severe mitral regurgitation. No mitral valve stenosis. Aortic Valve: Aortic leaflets exhibit normal cuspal separation. No aortic valve regurgitation. There is no aortic stenosis. The aortic valve is trileaflet. Tricuspid Valve: Tricuspid valve leaflets are normal in appearance and function. Mild tricuspid regurgitation. No tricuspid valve stenosis. Right Ventricular systolic pressure is measured at 44 mmHg. Pulmonary artery pressure is mildly increased. Pulmonic Valve: Pulmonic leaflets exhibit normal cuspal separation. Mild pulmonic valve regurgitation is present. There is no pulmonic valve stenosis. Aorta: Patient: SHAGUFTA CAM MRN: Study Date: 11/30/2018 Page 2 of 3 07:12 AM The aorta is normal. The aortic root size in M-mode measures 2.5 cm. The ascending aorta measures 3.6 cm. Aorta Measurements AoRoot, MM is 2.5 cm. IVC: The inferior vena cava is normal in size and course. Pericardium: No pericardial effusion. No pleural effusion present. Exam Details Procedure Ordered: Echo Procedure Status: Routine study Image Quality: Adequate Facility Location: Cardiac Echo 1 (No Signature Object) Patient: SHAGUFTA CAM MRN: Study Date: 11/30/2018 Page 3 of 3 07:12 AM [id number]
--- NOTE | 2018-11-30 20:01 | CPEKG ---
Test Reason : OPEN Blood Pressure : / mmHG Vent. Rate : 115 BPM Atrial Rate : 120 BPM P-R Int : 182 ms QRS Dur : 104 ms QT Int : 345 ms P-R-T Axes : 000 -44 090 degrees QTc Int : 478 ms Atrial fibrillation Paired ventricular premature complexes LVH with secondary repolarization abnormality Anterior infarct, old Confirmed by Jeremy Rogers ([id number]) on 11/30/2018 8:01:30 PM Referred By: Jeremy Rogers Confirmed By:Jeremy Rogers
[2018-11-30] MEDS ORDERED: MAGNESIUM SULF 1 GM/DEXTROSE 100 ML IV ONE (20:13)
[2018-11-30] MEDS ORDERED: METOPROLOL TARTRATE 25 MG TAB PO SCH (21:00)
--- NOTE | 2018-12-01 08:56 | PDCARPN ---
Cardiology Progress Note Chief Complaint: SOB Assessment/Plan: Assessment: The patient is 78 y/o M with a history of HTN, HLP, PVC, permanent a.fib, and MARISSA on CPAP admitted with cecil.fib with RVR and CHF. She developed AGUIAR 4 weeks ago which progressed to PND the last few days. She is responding well to Lasix. A echo showed a progression of MR to severe with a EF of 40%. She had a asymptomatic 19 beat run of WCT likely NSVT last night. Plan: 1. Permanent a.fib- poorly controlled rates. Continue Metoprolol. Hold Xarelto for NICOLA and LHC tomorrow. CHADS VASc of 4 2. Severe MR- Plan for NICOLA tomorrow with LHC. Consider mitral valve clipping versus robotic mitral valve replacement. 3. SCHF- Likely transition to PO tomorrow. On Metoprolol. No CHIRAG- secondary to hypotension. 4. electrolyte abnormalities- Electrolyte protocol 5. Iron deficiency anemia- Will need to cancel EGD tomorrow. H/H is stable and normal at this time. 6. Abnormal EKG- lateral Twave inversion. cath tomorrow. 7. h/o PVC's and NSVT- Add Metoprolol. Cath in 2012 showed minimal CAD 8. PHTN- with some response to Adenosine challenge. Norvasc on hold. 12/01/18 10:03 Subjective: SOB and PND have significantly improved. She feels puffy. No CP or palpitations. Reviewed/Discussed With: other (Dr. Asher) Objective: Vital Signs (8 Hrs) Temp Pulse Resp BP Pulse Ox 12/01/18 07:56 37.0 C 88 16 104/73 97 12/01/18 03:08 36.6 C 76 18 95/69 L 96 Intake/Output (24 Hrs) 11/30/18 12/01/18 12/02/18 05:59 05:59 05:59 Intake Total 300 700 Output Total 1999 3924 Balance -2304 -7966 Intake: Oral (ml) 300 650 IV Infused (ml) 50 Magnesium Sulf 2 gm/Water 50 50 ml @ 50 mls/hr IV ONCE ONE Rx#:[id number] Output: Urine (ml) 1999 3924 Toilet 1999 3924 Other: Weight 85.049 kg 83.4 kg Number of Voids 1 Toilet 1 1 Number of Stools Toilet 1 Result Diagrams: 11/30/18 03:14 12/01/18 03:10 Cardiac Labs: Cardiac Lab Results (72 Hrs) 11/30/18 03:14 Troponin I < 0.012 Telemetry: 19 beat run of WCT likely NSVT - Physical Exam Constitutional: no apparent distress Cardiovascular: systolic murmur, irregularly irregular Respiratory: clear to auscultate bilat, no crackles, no wheezes Skin: no edema Neurologic: AAOx3 ICD10 Worksheet Patient Problems: Problems Problem Status Onset Dyspnea Acute Abdominal pain Acute Chest pain Acute Contusion Acute
[2018-12-01] MEDS ORDERED: FUROSEMIDE 20 MG/2 ML VIAL IVP ONE (10:15)
[2018-12-01] MEDS ORDERED: NITROGLYCERIN 0.4 MG BTL SL PRN (10:15)
[2018-12-01] MEDS ORDERED: TEMAZEPAM 15 MG CAP PO PRN (10:15)
[2018-12-01] MEDS: ENOXAPARIN 40 MG/0.4 ML SYR SC SCH (11:17)
[2018-12-01] MEDS: POTASSIUM CL 20 MEQ TAB PO SCH ×2 (11:18→22:11)
[2018-12-01] MEDS: METOPROLOL TARTRATE 25 MG TAB PO SCH ×2 (11:25→22:10)
--- NOTE | 2018-12-01 17:42 | PDMN ---
Medical Necessity Medical necessity: Pt changed to IP as of 12/01/2018 per and EDUARDO M-190 (Heart Failure); pt was Obs for increased dyspnea with a.fib and CHF; echo today reveals progression of mitral valve regurgitation to severe with an EF of 40%, the pt is having runs of NSVT on overnight associate, and has a new Twave inversion on EKG; plan for LHC and mitral valve replacement; requiring tele, medication management, IVP diuretics, and electrolyte protocol.
[2018-12-02 04:14] LABS: PLATELET COUNT 211 10^3/uL (150-400)
[2018-12-02 04:30] LABS: INR 1.17 (0.83-1.16); PROTIME(PATIENT) 14.4 SEC (12.0-15.0)
[2018-12-02] MEDS ORDERED: ASPIRIN EC 325 MG TAB PO ONE ×2 (06:00→12:30)
[2018-12-02] MEDS ORDERED: diphenhydrAMINE 25 MG CAP PO ONE ×2 (06:00→12:30)
[2018-12-02] MEDS ORDERED: FAMOTIDINE 20 MG TAB PO ONE ×2 (06:00→12:30)
[2018-12-02] MEDS ORDERED: MAGNESIUM SULF 1 GM/DEXTROSE 100 ML IV ONE (08:03)
[2018-12-02] MEDS: METOPROLOL TARTRATE 25 MG TAB PO SCH ×2 (08:37→21:14)
--- NOTE | 2018-12-02 10:34 | PDCARPN ---
Cardiology Progress Note Chief Complaint: SOB, Lower leg edema Assessment/Plan: The patient is 78 y/o M with a history of HTN, HLP, PVC, permanent a.fib, and MARISSA on CPAP admitted with a-fib with RVR and CHF. She developed AGUIAR 4 weeks ago which progressed to PND the last few days. She is responding well to Lasix. An echo showed progression of MR to severe with a EF of 40- 45%. She had a asymptomatic 19 beat run of WCT likely NSVT over the week-end. Review of telemetry shows no NS-VT over night. Plan: 1. Permanent a-fib- controlled rates. Continue Metoprolol. Xarelto held for NICOLA and LHC today. CHADS VASc "4" 2. Severe MR- NICOLA with LHC today. Consider mitral valve clipping versus robotic mitral valve replacement. 3. SCHF- Likely transition to PO today. On Metoprolol. No CHIRAG- secondary to hypotension. 4. electrolyte abnormalities- Electrolyte protocol. Taking Potassium supplement 5. Iron deficiency anemia- EGD canceled for today due to NICOLA and LHC. H/H is back to normal now. 6. Abnormal EKG- Cath today. EKG showed Lateral T-wave inversion. 7. h/o PVC's and NSVT- Metoprolol added. Cath in 2012 showed minimal CAD 8. PHTN- She had response to Adenosine challenge. Norvasc on hold. Plan: Continue medical therapy. NICOLA and LHC today. Further recommendations post testing. 12/02/18 10:38 12/02/18 16:16 Subjective: "I am feeling better" Reviewed/Discussed With: multidisciplinary team Time Spent with Patient: greater than 25 minutes Time Spent with Patient: Greater than 25 minutes spent on this patients care, greater than 50% of time spent counseling, educating, and coordinating care regarding the above mentioned plan. Objective: Vital Signs (8 Hrs) Temp Pulse Resp BP Pulse Ox 12/02/18 08:00 36.6 C 106 H 12 114/73 95 12/02/18 03:30 36.6 C 103 H 17 118/77 92 Intake/Output (24 Hrs) 12/01/18 12/02/18 12/03/18 05:59 05:59 05:59 Intake Total 300 100 Output Total 700 900 Balance -400 -800 Intake: Oral (ml) 300 IV Infused (ml) 100 Magnesium Sulf 1 gm/ 100 Dextrose 100 ml @ 100 mls /hr IV ONCE ONE Rx#: [id number] Output: Urine (ml) 700 900 Toilet 700 900 Other: Weight 83.143 kg Number of Voids Toilet 2 Number of Stools Toilet 1 Result Diagrams: 12/02/18 03:25 12/02/18 03:25 - Physical Exam Constitutional: no apparent distress Cardiovascular: systolic murmur, irregularly irregular, pulses symmetric bilat Respiratory: clear to auscultate bilat, no crackles, no wheezes Skin: warm, other (mild LE edema) Neurologic: AAOx3 Psychiatric: cooperative, interactive ICD10 Worksheet Patient Problems: Problems Problem Status Onset Dyspnea Acute Abdominal pain Acute Chest pain Acute Contusion Acute
[2018-12-02] MEDS ORDERED: POTASSIUM CL 10 MEQ TAB PO ONE (12:43)
[2018-12-02] MEDS ORDERED: LIDOCAINE 1% 300 MG/30 ML SDV ONE (12:51)
[2018-12-02] MEDS ORDERED: HEPARIN 10,000 UNIT/10 ML MDV (1,000 UNIT/ML) ONE (12:51)
[2018-12-02] MEDS ORDERED: MIDAZOLAM 2 MG/2 ML VIAL ONE ×2 (12:51→13:58)
[2018-12-02] MEDS ORDERED: VERAPAMIL 5 MG/2 ML VIAL ONE (12:51)
[2018-12-02] MEDS ORDERED: fentaNYL 100 MCG/2 ML INJ ONE ×2 (12:51→13:58)
[2018-12-02] MEDS ORDERED: IOPAMIDOL (ISOVUE 370) 100 ML BTL IV ONE (12:52)
--- NOTE | 2018-12-02 12:52 | PDPROPOC ---
Sedation Plan of Care Sedation Plan of Care: vital signs stable, mental status noted, patient educated of risks, benefits, alternatives, patient can tolerate sedation ASA Classification: ASA 2 Planned drugs: fentanyl, midazolam Mallampati Score: Class 1 Mallampati Reference Image: Patient passed 3-3-2 rule?: Yes
--- NOTE | 2018-12-02 14:53 | PDDXCAT ---
Diagnostic Cath Note - . Date: 12/02/18 [place] On: Anmol High-risk criteria on non-invasive testing: severe resting left ventricular dysfunction (LVEF<35%) - Procedure Access: right wrist Procedure: left heart catheterization, coronary angiography, left ventriculogram , right heart catheterization - Materials Left Heart Cath size: 5F Left Heart Cath materials: pigtail, other (TIGER 4) - Findings-Left Heart Catheterization LM: Unobstructed LAD: Unobstructed LCX: Dominant: Unobstructed RCA: Non dominant: Unobstructed EDP: 20 mm of mercury LVEF: 10% Wall motion: Global hypokinesis - Findings-Right Heart Catheterization RA: 12 mm of mercury RV: 55/12 PA: 55/20 mm number PAOP: 20 mm of mercury Complications: None Estimated blood loss: <50ml Closure method: TR Band Assessment: Angiographically normal coronary arteries. Severe nonischemic dilated cardiomyopathy with severe left atrial enlargement and severe mitral regurgitation. Pulmonary hypertension with elevated wedge pressure Plan: Aggressive medical therapy. Considerations for biventricular AV node ablation. Patient Problems: Problems Problem Status Onset Chest pain Acute Abdominal pain Acute Contusion Acute Dyspnea Acute
--- NOTE | 2018-12-02 15:27 | CPEKG ---
Test Reason : OPEN Blood Pressure : / mmHG Vent. Rate : 107 BPM Atrial Rate : 000 BPM P-R Int : 162 ms QRS Dur : 106 ms QT Int : 364 ms P-R-T Axes : 000 130 -42 degrees QTc Int : 486 ms Atrial fibrillation Left posterior fascicular block Anterior infarct, old Borderline T abnormalities, inferior leads Confirmed by Ayan Delgado ([id number]) on 12/02/2018 3:26:59 PM Referred By: Alison Jacobsen Confirmed By:Ayan Delgado
--- NOTE | 2018-12-02 17:56 | ASMTCMCOM ---
CM Note CM Note Notes: 12/02/2018 Case Management Note Discussed with RN. 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 There are no therapy evals ordered today. Anticipating independent discharge with follow up as directed. Case Management d/c poc: to be determined. Case Management to follow. Date Signed: 12/02/2018 04:19 PM Electronically Signed By:Johana Loomis RN
[2018-12-02] MEDS: POTASSIUM CL 20 MEQ TAB PO SCH ×2 (18:12→21:13)
[2018-12-03] MEDS ORDERED: MAGNESIUM SULF 1 GM/DEXTROSE 100 ML IV ONE (08:14)
[2018-12-03] MEDS: POTASSIUM CL 20 MEQ TAB PO SCH (10:12)
[2018-12-03] MEDS: METOPROLOL TARTRATE 25 MG TAB PO SCH ×2 (10:16→22:03)
[2018-12-03] MEDS: ENOXAPARIN 40 MG/0.4 ML SYR SC SCH (10:16)
--- NOTE | 2018-12-03 13:16 | PDDCSUM ---
Discharge Summary Discharge Summary: Date of admission: 11/29 Date of discharge 12/03/2018 Admission diagnosis: Heart failure Discharge diagnosis systolic heart failure acute. Severe mitral regurgitation. Chronic atrial fibrillation Follow-up Kishor Asher 1 week Procedures: Left heart catheterization coronary ventricular angiography, transesophageal echocardiography. Medications per form 17 Hospital course: 78-year-old female admitted with decompensated heart failure. Transesophageal echocardiogram showed severe LV dysfunction which is new. This was confirmed by left ventricular angiography with an ejection fraction at best 15%. There is severe mitral regurgitation. Right heart hemodynamics showed her to be euvolemic. She tolerated the procedure well. With gentle diuresis she improved clinically. At this point it is uncertain as to whether not she would tolerate mitral valve repair/replacement in light of severe LV dysfunction. On the day of discharge blood pressure is 100/70 current heart rate is 84 and irregular. She had no JVP. Chest was clear. She is lying flat in bed. Extremities are free of edema. Systolic heart failure acute of uncertain etiology. Differential diagnosis would include progressive valvular heart disease verses occult poorly controlled AFib verses primary cardiomyopathy. At this point will begin aggressive beta-blockade, addition of Aldactone as diuretic. Begin ARB as outpatient. Considerations for device therapy. With improvement in LV function considerations for re-evaluation of the mitral valve. Questions were answered with the patient. She is discharged home in stable condition with clinical follow-up. Since starting Aldactone will stop her potassium supplementation with a metabolic profile in 1 week.
--- NOTE | 2018-12-03 13:26 | ASDISCHSUM ---
Discharge Information Plan Status:Home with No Needs Medically Cleared to Leave:12/03/2018 Discharge Date:12/03/2018 CM D/C Disposition:Home, Routine, Self-Care ADT D/C Disposition: Projected Discharge Date:12/03/2018 Transportation at D/C: Discharge Delay Reason: Follow-Up Date:12/03/2018 Discharge Slot: Final Diagnosis: Placement Information Patient Contact Information Contact Name:RIGO Relationship: Address:[address] City:[place] Alternate Phone: State/Zip Code:[place] [address] Email: Financial Information Financial Class:Medicare Advantage Plans Primary Plan Desc:[employer] GOLD MEDICARE Primary Plan Number:[id number] Secondary Plan Desc: Secondary Plan Number: Assessment Information LACE LACE Length of stay for Answers: 1 day current admission Acuity / Level of Answers: Yes Care: Did the patient have an inpatient admission? Comorbidities - select Answers: Congestive heart failure all that apply Other Notes: HTN, Afib # of Emergency department Answers: 1-2 visits in the last 6 months Score: 8 Date Signed: 12/03/2018 01:24 PM Electronically Signed By:Johana Loomis RN [facility] Progress Note CM Note CM Note Notes: Chart reviewed for discharge planning purposes. 78 year old female admitted via ED with c/o worsening fatigue and increasing SOB . Normally lives independent with her . CM to follow for needs. Plan: TBD Date Signed: 11/30/2018 08:38 AM Electronically Signed By:Dinora Sam RN [facility] CM Progress Note CM Note CM Note Notes: 12/02/2018 Case Management Note Discussed with RN. Attempted to meet with pt; pt to tender labor today. There are no therapy evals ordered today. Anticipating independent discharge with follow up as directed. Case Management d/c poc: to be determined. Case Management to follow. Date Signed: 12/02/2018 04:19 PM Electronically Signed By:Johana Loomis RN Case Management Discharge Plan Note Case Management Discharge Discharge Order Complete? Answers: Yes Patient to Obtain Answers: via Family Medications Transportation Arranged Answers: Family/Friends Discharge Comments Notes: 12/03/2018 Case Management Note Pt to discharge independent with follow up as directed. There are no case management d/c needs identified. Date Signed: 12/03/2018 01:25 PM Electronically Signed By:Johana Loomis RN Intervention Information
--- NOTE | 2018-12-03 15:14 | ASMTCMCOM ---
CM Note CM Note Notes: 12/03/2018 Case Management Note Discharge is cancelled d/t increased heart rate and shortness of breath with activity. Plan for ablation and pacemaker on . Case Management d/c poc: to be determined. Case Management to follow. Date Signed: 12/03/2018 03:13 PM Electronically Signed By:Johana Loomis RN
[2018-12-03] MEDS: DIGOXIN 250 MCG TAB PO SCH (17:04)
[2018-12-03] MEDS: SPIRONOLACTONE 25 MG TAB PO SCH (17:04)
--- NOTE | 2018-12-03 17:06 | SOAPPROG ---
SYBIL Progress Note Assessment/Plan: Assessment: Problem list: 1. 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 Atrial fibrillation with rapid ventricular response 3. Severe mitral regurgitation Plan: I hope to send the patient home today. With gentle ambulation her AFib rate went to 133 beats per minute with symptoms of shortness of breath. In light of severe LV dysfunction, AFib with poorly controlled rate response despite normal activity would recommend AV node ablation with implantation of a biventricular pacemaker. This should allow optimization of medical therapy, remodeling of the left ventricle with hopeful improvement of her severe mitral regurgitation. Have discussed this with her and the EP service. Will hold her anticoagulation and plan for this procedure over the next 48 hr. In the short term will begin digoxin 0.25 mg a day. Will start Aldactone 25 mg a day. Will up titrate her metoprolol to 25 mg p.o. Twice daily with follow-up of electrolytes. Continue cardiac rehabilitation. 12/03/18 17:03 Subjective: Short of breath with minimal activity Objective: Vital Signs Temp Pulse Resp BP Pulse Ox 36.6 C 92 20 102/73 90 L 12/03/18 15:11 12/03/18 15:11 12/03/18 15:11 12/03/18 15:11 12/03/18 15:11 Laboratory Results 12/02/18 03:25 12/03/18 04:35 12/02/18 12/03/18 12/04/18 05:59 05:59 05:59 Intake Total 300 450 500 Output Total 700 1650 600 Balance -400 -1200 -100 PT 14.4 SEC (12.0-15.0) 12/02/18 03:25 INR 1.17 (0.83-1.16) H 12/02/18 03:25 Physical Exam - Physical Exam General Appearance: alert, no apparent distress Neck: supple Cardiac/Chest: systolic murmur, irregularly irregular Abdomen: soft Skin: warm/dry, No rash ICD10 Worksheet Patient Problems: Problems Problem Status Onset Chest pain Acute Abdominal pain Acute Contusion Acute Dyspnea Acute Review of Systems - Review of Systems Constitutional: denies: chills, fever EENTM: no symptoms reported Respiratory: shortness of breath Cardiac: no symptoms reported Gastrointestinal/Abdominal: no symptoms reported Genitourinary: no symptoms Musculoskelatal: no symptoms Skin: no symptoms Neurological: no symptoms
[2018-12-04] MEDS ORDERED: MAGNESIUM SULF 1 GM/DEXTROSE 100 ML IV ONE (07:40)
[2018-12-04] MEDS ORDERED: RIVAROXABAN 20 MG TAB PO SCH (09:00)
[2018-12-04] MEDS: METOPROLOL TARTRATE 25 MG TAB PO SCH ×2 (09:31→22:32)
[2018-12-04] MEDS: SPIRONOLACTONE 25 MG TAB PO SCH (09:31)
[2018-12-04] MEDS: DIGOXIN 250 MCG TAB PO SCH (09:31)
--- NOTE | 2018-12-04 13:24 | ECHO ---
[email or web address] [place] [id number] Main: [phone] Echocardiography Examination Transesophageal Name: SHAGUFTA CAM MR#: [id number] Study Date: 12/02/2018 Study Time: 01:27 PM Date of : 1940 Age: 78 year(s) Height: ( ) Weight: ( ) BSA: Gender: Female Examination: NICOLA Contrast: Image Quality: Rhythm: Heart Rate: BP: / Indication: Pre Cath Procedure Staff Referring Physician: Child Guidance Counselor: Quentin Mike RDCS Reading Physician: Nitin Corea MD Requesting Provider: Ordering Physician: Alison Jacobsen Indication: Pre Cath Conclusions Overall Conclusions: No pericardial effusion. Severely reduced LV systolic function. Severe left atrial dilatation. Severe mitral regurgitation with centrally directed jet. Findings Left Ventricle: The EF is visually estimated to be 40 %. EF range is estimated at 35 % - 40 %. Right Ventricle: Right ventricular systolic function is moderately reduced. Left Atrium: The left atrium is severely dilated. Left Atrium Appendage: Good color flow doppler in the left atrial appendage. Right Atrium: The right atrium is severely dilated. Mitral Valve: Severe mitral regurgitation. No mitral valve stenosis. There is malcoaptation of the mitral valve leaflets. Aortic Valve: No significant aortic valve regurgitation. There is no aortic stenosis. The aortic valve is trileaflet. Tricuspid Valve: Patient: SHAGUFTA CAM Study Date: 12/02/2018 Page 1 of 2 01:27 PM Mild tricuspid regurgitation. Exam Details Procedure Ordered: NICOLA (No Signature Object) Patient: SHAGUFTA CAM Study Date: 12/02/2018 Page 2 of 2 01:27 PM [id number]
--- NOTE | 2018-12-04 15:10 | SOAPPROG ---
SYBIL Progress Note Assessment/Plan: Assessment: Problem list: 1. 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 Atrial fibrillation with rapid ventricular response 3. Severe mitral regurgitation 4. History of gastric bypass surgery with at least iron deficiency. 12/03/18 17:03 Plan: I hope to send the patient home today. With gentle ambulation her AFib rate went to 133 beats per minute with symptoms of shortness of breath. In light of severe LV dysfunction, AFib with poorly controlled rate response despite normal activity would recommend AV node ablation with implantation of a biventricular pacemaker. This should allow optimization of medical therapy, remodeling of the left ventricle with hopeful improvement of her severe mitral regurgitation. Have discussed this with her and the EP service. Will hold her anticoagulation and plan for this procedure over the next 48 hr. In the short term will begin digoxin 0.25 mg a day. Will start Aldactone 25 mg a day. Will up titrate her metoprolol to 25 mg p.o. Twice daily with follow-up of electrolytes. Continue cardiac rehabilitation. 12/04/18 15:07 Impression: Stable overnight on digoxin, metoprolol, Aldactone. 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 Will plan for metabolic evaluation to include at least ferritin, B6, B12 if not other micronutrients. Advanced heart failure consultation. Planning for AV node ablation with biventricular pacing. This was discussed today case conference and consensus opinion was that this would be the best approach initially. She has not felt to be a surgical candidate. Subjective: Feeling well. No chest pain, shortness of breath, PND, orthopnea. Diarrhea with magnesium. Objective: Vital Signs Temp Pulse Resp BP Pulse Ox 36.5 C 85 15 124/80 H 91 L 12/04/18 11:21 12/04/18 11:21 12/04/18 11:21 12/04/18 11:21 12/04/18 11:21 Laboratory Results 12/02/18 03:25 12/04/18 03:16 12/03/18 12/04/18 12/05/18 05:59 05:59 05:59 Intake Total 450 1150 Output Total 1650 1500 Balance -1200 -350 PT 14.4 SEC (12.0-15.0) 12/02/18 03:25 INR 1.17 (0.83-1.16) H 12/02/18 03:25 Physical Exam - Physical Exam General Appearance: alert, no apparent distress Neck: supple Respiratory: lungs clear Cardiac/Chest: irregularly irregular Abdomen: non-tender, soft ICD10 Worksheet Patient Problems: Problems Problem Status Onset Chest pain Acute Abdominal pain Acute Contusion Acute Dyspnea Acute Review of Systems - Review of Systems Constitutional: denies: chills, fever Respiratory: shortness of breath Cardiac: lightheadedness. denies: chest pain, irregular heart rate Gastrointestinal/Abdominal: no symptoms reported, diarrhea Genitourinary: no symptoms Musculoskelatal: no symptoms Skin: no symptoms Neurological: no symptoms
--- NOTE | 2018-12-05 06:24 | PDCARCONS ---
Cardiology Consult Reason for Consult: EP CONSULT. Re - evaluate for BiV pacing and AV node ablation. Pt seen 12/04 PM, this is a late discussion Chief Complaint: CHF symptoms Requesting Physician: Dr. Nitin Corea History of Present Illness: 78 F with permanent AFIB, HTN, HLD presented with worsening CHF. She underwent R+L HC and has slowly improved this hospitalization. History Information - Allergies/Home Medication List Allergies/Adverse Reactions: apixaban [From Eliquis] Allergy (Intermediate, Verified 11/29/18 14:00) Other-Enter Comments amoxicillin Allergy (Verified 11/29/18 14:00) azithromycin [From Zithromax] Allergy (Verified 11/29/18 14:00) clavulanic acid [From Augmentin] Allergy (Verified 11/29/18 14:00) diclofenac Allergy (Verified 11/29/18 14:07) hydromorphone [From Dilaudid] Allergy (Verified 11/29/18 14:00) ketorolac [From Toradol] Allergy (Verified 11/29/18 14:00) promethazine [From Phenergan] Allergy (Verified 11/29/18 14:00) Sulfa (Sulfonamide Antibiotics) Allergy (Verified 11/29/18 14:00) Swelling/neck,face,throat Home Medications: Herbals/Supplements -Info Only 1 ea PO DAILY 06/18/13 [Last Taken 11/29/18] Potassium Cl [Klor-Con 20 meq (*)] 40 meq PO BID 06/18/13 [Last Taken 11/29/18] amLODIPine BESYLATE [Norvasc 5 mg (*)] 5 mg PO DAILY 03/13/16 [Last Taken ] Chlorthalidone [Chlorthalidone 25 mg (*)] 25 mg PO DAILY 03/21/17 [Last Taken ] Rivaroxaban [Xarelto] 20 mg PO DAILY #0 01/21/18 [Last Taken 11/28/18] I have personally reviewed and updated: family history, medical history, social history, surgical history Past Medical History: - Social History Smoking Status: Never smoked Physical Exam Physical Exam: Temp Pulse Resp BP Pulse Ox 36.8 C 76 16 122/71 H 97 12/05/18 04:00 12/05/18 04:00 12/05/18 04:00 12/05/18 04:00 12/05/18 04:00 O2 (L/minute) 2.5 Constitutional: no apparent distress Eyes: PERRL, EOMI Ears, Nose, Mouth, Throat: moist mucous membranes, hearing normal Cardiovascular: systolic murmur, irregularly irregular Respiratory: no respiratory distress Gastrointestinal: normoactive bowel sounds, soft, non-tender abdomen Neurologic: AAOx3 Psychiatric: interacting appropriately, not anxious, not encephalopathic, thought process linear Lab and Imaging 12/02/18 03:25 12/05/18 03:22 WBC 6.98 10^3/uL (3.80-9.50) 12/02/18 03:25 RBC 5.49 10^6/uL (4.18-5.33) H 12/02/18 03:25 Hgb 14.3 g/dL (12.6-16.3) 12/02/18 03:25 Hct 43.7 % (38.0-47.0) 12/02/18 03:25 MCV 79.6 fL (81.5-99.8) L 12/02/18 03:25 MCH 26.0 pg (27.9-34.1) L 12/02/18 03:25 MCHC 32.7 g/dL (32.4-36.7) 12/02/18 03:25 RDW TNP 12/02/18 03:25 Plt Count 211 10^3/uL (150-400) 12/02/18 03:25 MPV 10.6 fL (8.7-11.7) 12/02/18 03:25 Neut % (Auto) 55.3 % (39.3-74.2) 12/02/18 03:25 Lymph % (Auto) 27.4 % (15.0-45.0) 12/02/18 03:25 [place] % (Auto) 12.8 % (4.5-13.0) 12/02/18 03:25 Eos % (Auto) 3.3 % (0.6-7.6) 12/02/18 03:25 Baso % (Auto) 0.9 % (0.3-1.7) 12/02/18 03:25 Nucleat RBC Rel Count 0.0 % (0.0-0.2) 12/02/18 03:25 Absolute Neuts (auto) 3.87 10^3/uL (1.70-6.50) 12/02/18 03:25 Absolute Lymphs (auto) 1.91 10^3/uL (1.00-3.00) 12/02/18 03:25 Absolute Monos (auto) 0.89 10^3/uL (0.30-0.80) H 12/02/18 03:25 Absolute Eos (auto) 0.23 10^3/uL (0.03-0.40) 12/02/18 03:25 Absolute Basos (auto) 0.06 10^3/uL (0.02-0.10) 12/02/18 03:25 Absolute Nucleated RBC 0.00 10^3/uL (0-0.01) 12/02/18 03:25 Immature Gran % 0.3 % (0.0-1.1) 12/02/18 03:25 Immature Gran # 0.02 10^3/uL (0.00-0.10) 12/02/18 03:25 Platelet Estimate ADEQUATE (ADEQ) 12/02/18 03:25 Polychromasia 1+ H 12/02/18 03:25 Hypochromasia 1+ H 11/30/18 03:14 Microcytic Cells 1+ H 11/30/18 03:14 Oval Macrocytes 1+ H 12/02/18 03:25 Echinocytes 1+ H 12/02/18 03:25 Elliptocytes 1+ H 11/30/18 03:14 Acanthocytes (Spur) 1+ H 11/30/18 03:14 Schistocytes 1+ H 11/29/18 14:19 PT 14.4 SEC (12.0-15.0) 12/02/18 03:25 INR 1.17 (0.83-1.16) H 12/02/18 03:25 APTT 40.0 SEC (23.0-38.0) H 12/02/18 03:25 Sodium 135 mEq/L (135-145) 12/02/18 03:25 Potassium 3.6 mEq/L (3.5-5.2) 12/05/18 03:22 Chloride 101 mEq/L (97-110) 12/02/18 03:25 Carbon Dioxide 22 mEq/l (22-31) 12/02/18 03:25 Anion Gap 12 mEq/L (6-14) 12/02/18 03:25 BUN 31 mg/dL (7-23) H 12/02/18 03:25 Creatinine 0.8 mg/dL (0.6-1.0) 12/02/18 03:25 Estimated GFR > 60 12/02/18 03:25 Glucose 86 mg/dL (70-100) 12/02/18 03:25 Calcium 9.6 mg/dL (8.5-10.4) 12/02/18 03:25 Magnesium 1.6 mg/dL (1.6-2.3) 12/05/18 03:22 Ferritin 113.0 ng/mL (6.2-264.0) 12/04/18 16:10 POC Troponin I 0.03 ng/mL (0.00-0.08) 11/29/18 14:24 Troponin I < 0.012 ng/mL (0.000-0.034) 11/30/18 03:14 NT-Pro-B Natriuret Pep 528 pg/mL (0-450) H 11/29/18 14:19 Triglycerides 76 mg/dL (35-135) 12/02/18 03:25 Cholesterol 114 mg/dL (140-220) L 12/02/18 03:25 Cholesterol Risk Factr 0.4 (0.2-1.0) 12/02/18 03:25 LDL Cholesterol, Calc 50 mg/dL (80-100) L 12/02/18 03:25 LDL Risk Factor 0.4 (0.2-1.0) 12/02/18 03:25 VLDL Cholesterol 15 mg/dL (8-25) 12/02/18 03:25 Non-HDL Cholesterol 65 mg/dL (90-129) L 12/02/18 03:25 HDL Cholesterol 49 mg/dL (40-85) 12/02/18 03:25 LDL/HDL Ratio 1.02 RATIO (1.00-3.22) 12/02/18 03:25 Cholesterol/HDL Ratio 2.33 RATIO (1.00-4.44) 12/02/18 03:25 Vitamin B12 > 1000 pg/mL (239-931) H 12/04/18 16:10 TSH 2.220 uIU/mL (0.465-4.680) 12/04/18 16:10 Telemetry: AFIB with HR 80-95 bpm at rest A/P Assessment: 1. Permanent atrial fibrillation 2. Severe MR 3. Non-ischemic cardiomyopathy 4. Gastric bypass Plan: 78 F with above issues. I saw her on 2W on 12/04/18 PM, her was present for this discussion. She was originally scheduled for 12/05/09 for BiV ICD and AV node ablation. At this time, with treatment of CHF and up-titrating beta blockers, the patient' s heart rate is controlled (at rest). She has a narrow QRS on ECG. She does not currently meet criteria fo BiV ICD and AV node ablation. This was d.w. Dr. Corea and Dr. Loyola (who was going to perform procedure 12/05) . She may still have suboptimal control of HR with exercise and may need above procedure, however would like to titrate medical therapy for 1-2 weeks prior to making this decision. She still meets criteria for ICD placement and this should be considered. As per discussion at case conference, MV repair/Mitracllip could also be considered. Dr. Loyola will follow. Thank you for the consultation.
[2018-12-05] MEDS ORDERED: POTASSIUM CL 10 MEQ TAB PO ONE (07:35)
[2018-12-05] MEDS ORDERED: MAGNESIUM SULF 1 GM/DEXTROSE 100 ML IV ONE (07:37)
[2018-12-05] MEDS: METOPROLOL TARTRATE 25 MG TAB PO SCH ×2 (09:06→22:12)
[2018-12-05] MEDS: SPIRONOLACTONE 25 MG TAB PO SCH (09:08)
[2018-12-05] MEDS: DIGOXIN 250 MCG TAB PO SCH (09:09)
--- NOTE | 2018-12-05 16:07 | SOAPPROG ---
[facility] Progress Note Assessment/Plan: Assessment: Problem list: 1. 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 Atrial fibrillation with rapid ventricular response 3. Severe mitral regurgitation 4. History of gastric bypass surgery with at least iron deficiency. 12/03/18 17:03 Plan: I hope to send the patient home today. With gentle ambulation her AFib rate went to 133 beats per minute with symptoms of shortness of breath. In light of severe LV dysfunction, AFib with poorly controlled rate response despite normal activity would recommend AV node ablation with implantation of a biventricular pacemaker. This should allow optimization of medical therapy, remodeling of the left ventricle with hopeful improvement of her severe mitral regurgitation. Have discussed this with her and the EP service. Will hold her anticoagulation and plan for this procedure over the next 48 hr. In the short term will begin digoxin 0.25 mg a day. Will start Aldactone 25 mg a day. Will up titrate her metoprolol to 25 mg p.o. Twice daily with follow-up of electrolytes. Continue cardiac rehabilitation. 12/04/18 15:07 Impression: Stable overnight on digoxin, metoprolol, Aldactone. 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 Will plan for metabolic evaluation to include at least ferritin, B6, B12 if not other micronutrients. Advanced heart failure consultation. Planning for AV node ablation with biventricular pacing. This was discussed today case conference and consensus opinion was that this would be the best approach initially. She has not felt to be a surgical candidate. 12/05/18 16:06 Impression: Improved heart rate overnight on metoprolol. Consultation by EP service recommending patient be discharged with a LifeVest. Clinical follow-up and outpatient re-evaluation for AV node ablation and device pending continued good heart rate response. Tolerating Aldactone well basic metabolic panel tomorrow. Home tomorrow. Objective: Vital Signs Temp Pulse Resp BP Pulse Ox 36.8 C 81 17 128/96 H 95 12/05/18 14:49 12/05/18 14:49 12/05/18 14:49 12/05/18 14:49 12/05/18 14:49 Laboratory Results 12/02/18 03:25 12/05/18 03:22 12/04/18 12/05/18 12/06/18 05:59 05:59 05:59 Intake Total 1150 1330 Output Total 1500 2100 Balance -350 -770 PT 14.4 SEC (12.0-15.0) 12/02/18 03:25 INR 1.17 (0.83-1.16) H 12/02/18 03:25 Physical Exam - Physical Exam General Appearance: alert, no apparent distress Neck: full range of motion, supple Respiratory: lungs clear Cardiac/Chest: normal peripheral pulses Abdomen: normal bowel sounds, non-tender, soft Back: Normal inspection, No CVA tenderness Skin: No rash ICD10 Worksheet Patient Problems: Problems Problem Status Onset Chest pain Acute Abdominal pain Acute Contusion Acute Dyspnea Acute
--- NOTE | 2018-12-05 16:36 | PDCARPN ---
Cardiology Progress Note Chief Complaint: "I'm still out of breath" Assessment/Plan: Assessment: 78-year-old female with permanent atrial fibrillation, historically had been intrinsically rate controlled with adequate ventricular rates. Now admitted with severely decompensated systolic heart failure and atrial fibrillation with RVR. The concern was initially for tachy mediated cardiomyopathy, however given her historic intrinsic rate control I suspect that the RVR is actually being driven by onset of cardiomyopathy. This is also supported by the fact that her ventricular rates are now more than adequately controlled with relatively simple medical management (metoprolol 25 mg twice daily, digoxin 250 mcg daily). 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 Plan: 1. Continue medical rate control as above 2. Recommend anticoagulation for CHADS2 Vasc equals 3 (I will order Eliquis 5 mg twice daily) 3. She needs to be fitted with life vest prior to discharge, due to newly diagnosed severe nonischemic cardiomyopathy with newly initiated medical therapy , and consideration of staged mitral valve surgery in the near future (I have faxed in the life vest order today) 12/05/18 16:35 12/05/18 16:37 Subjective: No acute events. Heart rates 70-80s (still in AF) on digoxin 250mcg daily and metoprolol 25mg bid. We've discussed the fact that at this point AV node ablation plus permanent pacing is not indicated, due to relatively easy rate control with medical management, and the fact that I suspect her RVR was actually being driven by onset of cardiomyopathy, not the other way around. We did have a conversation about the risk of cardiac arrest with newly diagnosed severe cardiomyopathy, and I have recommended LifeVest fitting prior to discharge. Time Spent with Patient: greater than 25 minutes Time Spent with Patient: Greater than 25 minutes spent on this patients care, greater than 50% of time spent counseling, educating, and coordinating care regarding the above mentioned plan. Objective: Vital Signs (8 Hrs) Temp Pulse Resp BP Pulse Ox 12/05/18 14:49 36.8 C 81 17 128/96 H 95 12/05/18 12:00 36.4 C 71 14 101/83 H 93 12/05/18 09:09 78 12/05/18 09:06 93 122/88 H Intake/Output (24 Hrs) 12/04/18 12/05/18 12/06/18 05:59 05:59 05:59 Intake Total 1150 1330 Output Total 1500 2100 Balance -350 -770 Intake: Oral (ml) 1150 1330 Output: Urine (ml) 1500 2100 Toilet 1500 2100 Other: Weight 83.7 kg 83.9 kg Intake Quantity Yes Sufficient Number of Voids Toilet 3 1 Number of Stools Toilet 1 Result Diagrams: 12/02/18 03:25 12/05/18 03:22 Telemetry: Atrial fibrillation, adequately rate controlled - Physical Exam Constitutional: no apparent distress Eyes: PERRL, EOMI Ears, Nose, Mouth, Throat: moist mucous membranes Cardiovascular: systolic murmur, irregularly irregular (normal rate), jugular vein distention Peripheral Pulses: 2+: carotid (R), carotid (L), dorsalis-pedis (R), dorsalis- pedis (L) Respiratory: clear to auscultate bilat Gastrointestinal: normoactive bowel sounds Skin: no rashes Neurologic: AAOx3, CN II-XII grossly intact Psychiatric: cooperative, interactive, following commands, not anxious ICD10 Worksheet Patient Problems: Problems Problem Status Onset Dyspnea Acute Abdominal pain Acute Chest pain Acute Contusion Acute
[2018-12-05] MEDS ORDERED: APIXABAN 5 MG TAB PO SCH (21:00)
[2018-12-05] MEDS: DABIGATRAN ETEXILATE MESYL 150 MG CAP PO SCH (22:11)
[2018-12-06] MEDS ORDERED: MAGNESIUM SULF 1 GM/DEXTROSE 100 ML IV ONE (07:21)
--- NOTE | 2018-12-06 08:59 | PDCARPN ---
Cardiology Progress Note Chief Complaint: "When can I go home?" Assessment/Plan: Assessment: 78-year-old female with permanent atrial fibrillation, historically had been intrinsically rate controlled with adequate ventricular rates. Now admitted with severely decompensated systolic heart failure and atrial fibrillation with RVR. The concern was initially for tachy mediated cardiomyopathy, however given her historic intrinsic rate control I suspect that the RVR is actually being driven by onset of cardiomyopathy. This is also supported by the fact that her ventricular rates are now more than adequately controlled with relatively simple medical management (metoprolol 25 mg twice daily, digoxin 250 mcg daily). 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 Plan: 1. Continue medical rate control as above 2. Recommend anticoagulation for CHADS2 Vasc equals 3 (on pradaxa due to eliquis intolerance previously) 3. Awaiting Life Vest fitting, from my perspective this is the only major barrier to discharge at this point. Hoping to get this done by the end of today , possibly over the weekend. 12/05/18 16:35 12/05/18 16:37 12/06/18 08:58 Subjective: Doing much better overall. Remains in rate controlled atrial fibrillation, with systolics in the 110s to 120s. We are awaiting Life Vest fit mint. She declined Eliquis yesterday, citing prior muscle cramps on this medications; she is currently on Pradaxa. Objective: Vital Signs (8 Hrs) Temp Pulse Resp BP Pulse Ox 12/06/18 07:08 36.4 C 84 18 120/92 H 98 12/06/18 03:27 36.4 C 81 20 137/93 H 90 L Intake/Output (24 Hrs) 12/05/18 12/06/18 12/07/18 05:59 05:59 05:59 Intake Total 1330 750 Output Total 2100 1400 Balance -770 -650 Intake: Oral (ml) 1330 750 Output: Urine (ml) 2100 1400 Toilet 2100 1400 Other: Weight 83.9 kg 82.8 kg Number of Voids Toilet 1 Number of Stools Toilet 1 Result Diagrams: 12/02/18 03:25 12/06/18 03:26 Telemetry: rate controlled AF - Physical Exam Eyes: PERRL Ears, Nose, Mouth, Throat: moist mucous membranes Cardiovascular: systolic murmur, irregularly irregular Peripheral Pulses: 2+: carotid (R), carotid (L), dorsalis-pedis (R), dorsalis- pedis (L) Respiratory: clear to auscultate bilat Gastrointestinal: normoactive bowel sounds Skin: no rashes Neurologic: AAOx3, CN II-XII grossly intact Psychiatric: cooperative, interactive, following commands, not anxious ICD10 Worksheet Patient Problems: Problems Problem Status Onset Dyspnea Acute Abdominal pain Acute Chest pain Acute Contusion Acute
--- NOTE | 2018-12-06 09:28 | ASMTCMCOM ---
CM Note CM Note Notes: Chart reviewed for discharge planning purposes, patient awaiting life vest prior to discharge and will have intervention for MVR in the future. Normally independent, lives with . No previous therapy evaluations at this time. CM available should needs arise. Plan: Dc to home with Life Vest. Date Signed: 12/06/2018 09:27 AM Electronically Signed By:Dinora Sam RN
[2018-12-06] MEDS: METOPROLOL TARTRATE 25 MG TAB PO SCH (09:31)
[2018-12-06] MEDS: DIGOXIN 250 MCG TAB PO SCH (09:32)
[2018-12-06] MEDS: DABIGATRAN ETEXILATE MESYL 150 MG CAP PO SCH (09:32)
[2018-12-06] MEDS: SPIRONOLACTONE 25 MG TAB PO SCH (09:35)
[2018-12-06] MEDS ORDERED: RIVAROXABAN 20 MG TAB PO SCH ×2 (15:00→21:00)
[2018-12-06 15:51] VITALS: BP 129/65
--- NOTE | 2018-12-06 16:28 | PDDCSUM ---
Discharge Summary Discharge Summary: Discharge summary update. For details of the hospitalization please see the previous discharge note. Update: Patient's hospitalization was extended for 48 hr with evaluation by the EP service. Initially plans were made for AV node ablation and implantation of a pacemaker. With increased medical therapy patient's rate control was improved. It was elected to pause at this point. Light of severe LV dysfunction a LifeVest was ordered. This required 48 hr to obtain. She was observed for this entire.. There were no dysrhythmias identified. She is ready for discharge today with follow-up as outlined previously. Date of discharge 12/06/2018. Clinical follow-up 1 week.
== END 2018-12-06 20:43 | disposition home or self-care (01) | DRG 287 ==
LOC: F2W 18:00 → OBSVTOIN 12-01 17:30
PROVIDERS: ADMIT Internal Medicine Cardiovascular Disease; ATTEND Internal Medicine Cardiovascular Disease
DX: I11.0 Hypertensive heart disease with heart failure (principal); I50.23 Acute on chronic systolic (congestive) heart failure; I48.2 Chronic atrial fibrillation; I42.9 Cardiomyopathy, unspecified; I34.0 Nonrheumatic mitral (valve) insufficiency; I27.20 Pulmonary hypertension, unspecified; E78.5 Hyperlipidemia, unspecified; G47.33 Obstructive sleep apnea (adult) (pediatric); D50.9 Iron deficiency anemia, unspecified; Z98.84 Bariatric surgery status
CPT/HCPCS: 82379-90; 82525-90; 82607-90; 82652-90; 84207-90; 84446-90; 84484-ER; 84590-90; 84630-90; 96374; C1769; G0378; J1644; J1650; J1940; J2250; J3010; J3475; Q9967